=== PATIENT | female | born 1940 | race Caucasian/White ===

== ENCOUNTER → 2019-11-21 09:47 | Outpatient (CLI) | payer MEDICARE, OTHER, SELFPAY ==
[2019-11-22 03:00] LABS: COVID19 Sendout Not Detected (Not Detect)
== END ==
PROVIDERS: Visit Provider Registered Nurse
DX: Z01.818 Encounter for other preprocedural examination (principal)
CPT/HCPCS: 87635

== ENCOUNTER 2024-03-30 21:40 | Inpatient (IN) | payer MEDICARE, OTHER, SELFPAY ==
[2024-03-30] VITALS (15 sets, daily range): BP systolic 72–190; BP diastolic 42–123; PULSE 87–129; RESP 17–26; TEMP 36.3–36.5; O2SAT 95–99; BMI 25.9
--- NOTE | 2024-03-30 22:02 | PC.NURSE ---
pt states she has been passing bright red blood, enough to make the water turn red, appears to increasing over the last couple of hours pt states she does not feel like this is hemorrhoids
[2024-03-30 22:11] LABS: INR 1.1 (0.9-1.3); Prothrombin Time 12.2 SECONDS (9.4-12.5)
[2024-03-30 22:13] LABS: Add Manual Diff / Slide Review NO; Basophils Absolute Auto 100 /uL (0-100); Basophils Percent Auto 0.5 % (0-2); Eosinophils Absolute Auto 300 /uL (0-450); Eosinophils Percent Auto 1.6 % (2-4); Hematocrit 39.1 % (36-46); Hemoglobin 12.1 g/dL (12.0-16.0); Lymphocytes Absolute Auto 4100 /uL (1100-4500); Lymphocytes Percent Auto 24.8 % (25-40); Mean Corpuscular Hemoglobin 28.5 PG (26-34); Mean Corpuscular Volume 92.2 fL (80-100); Monocytes Absolute Auto 500 /uL (0-900); Monocytes Percent Auto 2.9 % (3-14); Neutrophils Absolute Auto 11700 /uL (1500-7000); Neutrophils Percent Auto 70.2 % (50-75); Platelet Count 625 X10^3/uL (150-400); Red Blood Cell Count 4.24 X10^6/uL (4.0-5.2); White Blood Cell Count 16.6 X10^3/uL (4.5-11.0)
[2024-03-30 22:14] LABS: PTT Partial Thromboplastin Tim 38 SECONDS (25.1-36.5)
[2024-03-30 22:15] LABS: Alanine Aminotransferase 20 IU/L (<35); Albumin 4.1 g/dL (3.5-5.0); Albumin Globulin Ratio 1.3 (1.0-2.8); Alkaline Phosphatase 108 U/L (38-126); Aspartate Aminotransferase 31 IU/L (14-36); BUN Creatinine Ratio 37.2 (6-22); Bilirubin Total 0.6 mg/dL (0.2-1.3); Blood Urea Nitrogen 32 mg/dL (7-17); Carbon Dioxide 25 mmol/L (22-32); Chloride 105 mmol/L (98-107); Estimated Glomerular Filt Rate > 60 mL/min (>60); Globulin 3.1 g/dL (1.7-4.1); Glucose 131 mg/dL (80-110); HEMOLYSIS < 15 (0-50); Lipase 135 U/L (23-300); Potassium 4.2 mmol/L (3.4-5.1); Sodium 136 mmol/L (137-145); Total Protein 7.2 g/dL (6.3-8.2)
--- NOTE | 2024-03-30 22:20 | PC.NURSE ---
pt up to bathroom, pass about 500ml of blood with stool passed
--- NOTE | 2024-03-30 22:34 | ED.GIBLEED ---
HPI - GI Bleed General Chief complaint: GI Bleed Stated complaint: Rectal Bleeding Time Seen by Provider: 03/30/24 21:59 Source: patient Mode of arrival: Ambulatory Limitations: no limitations History of Present Illness HPI Narrative: Patient is an 84-year-old female. History of polycythemia vera. Not on blood thinners who is here for evaluation of approximately 6 episodes of bright red blood per rectum. Symptoms started earlier this evening. No pain with going to the bathroom. No abdominal pain. No nausea. No vomiting. No chest pain. No shortness of breath. No lightheadedness. No recent travel. No recent antibiotics. She was never had a GI bleed in the past. Her last colonoscopy was greater than 10 years ago. He was told that she no longer needed colonoscopies because of her age. She had no abnormalities on prior colonoscopies. Related Data Home Medications Medication Instructions Recorded Confirmed [CRANBERRY] 1 cap PO QDAY ##0 01/27/17 hydrochlorothiazide 25 mg tablet 25 mg PO QDAY ##0 01/27/17 hydroxyurea 500 mg capsule 500 mg ##0 01/27/17 metoprolol succinate 50 mg 50 mg PO QDAY ##0 01/27/17 tablet,extended release 24 hr (Toprol XL) ranitidine HCl 150 mg tablet 150 mg PO BID ##0 01/27/17 (Zantac) Previous Rx's Medication Instructions Recorded cefdinir 300 mg capsule 300 mg PO Q12H #14 caps 01/27/17 Allergies Allergy/AdvReac Type Severity Reaction Status Date / Time oxycodone [OXYCODONE] Allergy Unknown Unverified 10/23/17 12:12 Review of Systems Review of Systems ROS Unobtainable: All systems reviewed & are unremarkable except as noted in HPI and below Patient History Medical History (Updated 03/31/24 @ 00:54 by Mikel Paz MD) HTN (hypertension) GERD (gastroesophageal reflux disease) Acquired polycythemia vera Social History Smoking Status: Never smoker Smoking Status: Never smoker Substance Use Type: does not use Exam Initial Vital Signs Initial Vital Signs: Vital Signs Pulse Rate 128 H 03/30/24 21:44 Pulse Oximetry 98 03/30/24 21:44 Const General: cooperative, comfortable and No ill appearing [facility] Head: normal to inspection Resp Effort & Inspection: normal respiratory effort Auscultation: clear to auscultation bilaterally Cardio Rate: tachycardic Rhythm: regular rhythm GI Inspection: normal to inspection and non-distended Palpation: soft Neuro General: patient alert, patient awake and moves all extremities Extrem General: capillary refill normal Course Orders Ordered: ED Orders 03/30/24 21:50 Complete Blood Count AUTO DIFF Stat Comprehensive Metabolic Panel Stat Lipase Stat PTT Partial Thromboplastin Jaron Stat Packed Cells Stat Prothrombin Time INR Stat Type and Screen Stat 03/30/24 22:15 GI Panel (Film Array) Stat 03/30/24 23:26 Consult to General Surgery Stat 03/30/24 23:30 Hemoglobin and Hematocrit Stat Acetaminophen (Acetaminophen 325 Mg Tablet) 650 mg PO Q6H PRN PRN Reason: Fever/Mild Pain (1-3) Sodium Chloride (Normal Saline 0.9%) 1,000 mls @ 125 mls/hr IV CONT CHRISTI Last Infusion: 03/30/24 23:30 Dose: 0 mls/hr Documented By: Admin: 03/30/24 23:23 Dose: 125 mls/hr Documented By: [place] Naloxone HCl (Naloxone 0.4 Mg/Ml Vial) 0.2 mg IV Q2MIN PRN PRN Reason: Opiate Reversal Pantoprazole Sodium (Pantoprazole 40 Mg Vial) 40 mg IV DAILY [facility] Vital Signs Vital signs: Vital Signs - 8 hr 03/30/24 21:44 03/30/24 21:45 03/30/24 21:45 Temperature Pulse Rate 128 H 126 H Respiratory Rate Blood Pressure 190/123 H Pulse Oximetry 98 99 Oxygen Delivery Method 03/30/24 21:51 03/30/24 22:00 03/30/24 22:22 Temperature 97.3 F L Pulse Rate 129 H 111 H 115 H Respiratory Rate 24 22 18 Blood Pressure 190/123 H Pulse Oximetry 98 98 97 Oxygen Delivery Method Room Air 03/30/24 22:22 03/30/24 22:30 03/30/24 23:10 Temperature Pulse Rate 115 H 103 H Respiratory Rate 18 20 Blood Pressure 142/64 H Pulse Oximetry 98 97 Oxygen Delivery Method 03/30/24 23:11 03/30/24 23:11 03/30/24 23:20 Temperature Pulse Rate 102 H Respiratory Rate 22 Blood Pressure 96/54 L 72/42 L Pulse Oximetry 95 Oxygen Delivery Method 03/30/24 23:20 03/30/24 23:21 03/30/24 23:21 Temperature Pulse Rate 90 87 Respiratory Rate 21 22 Blood Pressure 76/45 L Pulse Oximetry 95 95 Oxygen Delivery Method 03/30/24 23:30 03/30/24 23:34 03/30/24 23:37 Temperature 97.7 F Pulse Rate 97 H 97 H Respiratory Rate 17 18 Blood Pressure 76/45 L 116/56 L Pulse Oximetry 96 Oxygen Delivery Method 03/30/24 23:37 Temperature Pulse Rate 96 H Respiratory Rate 19 Blood Pressure Pulse Oximetry 97 Oxygen Delivery Method MDM - GI Bleed Lab Data Attestation: I reviewed the patient's lab results. 03/30/24 23:30 03/30/24 21:50 Labs: Lab Results 03/30/24 03/30/24 03/30/24 Range/Units 21:50 22:15 23:30 WBC 16.6 H (4.5-11.0) X10^3/uL RBC 4.24 (4.0-5.2) X10^6/uL Hgb 12.1 10.6 L (12.0-16.0) g/dL Hct 39.1 34.2 L (36-46) % MCV 92.2 (80-100) fL MCH 28.5 (26-34) PG MCHC 31.0 (30-36) % RDW 20.0 H (11.6-14.8) % Plt Count 625 H (150-400) X10^3/uL Neut % (Auto) 70.2 (50-75) % Lymph % (Auto) 24.8 L (25-40) % [place] % (Auto) 2.9 L (3-14) % Eos % (Auto) 1.6 L (2-4) % Baso % (Auto) 0.5 (0-2) % Neut # (Auto) 03141 H (7911-3551) /uL Lymph # (Auto) 4100 (9180-3725) /uL [place] # (Auto) 500 (0-900) /uL Eos # (Auto) 300 (0-450) /uL Baso # (Auto) 100 (0-100) /uL PT 12.2 (9.4-12.5) SECONDS INR 1.1 (0.9-1.3) APTT 38 H (25.1-36.5) SECONDS Sodium 136 L (137-145) mmol/L Potassium 4.2 (3.4-5.1) mmol/L Chloride 105 (98-107) mmol/L Carbon Dioxide 25 (22-32) mmol/L BUN 32 H (7-17) mg/dL Creatinine 0.86 (0.52-1.04) mg/dL Estimated GFR > 60 (>60) mL/min BUN/Creatinine Ratio 37.2 H (6-22) Glucose 131 H (80-110) mg/dL Calcium 10.0 (8.4-10.2) mg/dL Total Bilirubin 0.6 (0.2-1.3) mg/dL AST 31 (14-36) IU/L ALT 20 (<35) IU/L Alkaline Phosphatase 108 (38-126) U/L Total Protein 7.2 (6.3-8.2) g/dL Albumin 4.1 (3.5-5.0) g/dL Globulin 3.1 (1.7-4.1) g/dL Albumin/Globulin Ratio 1.3 (1.0-2.8) Lipase 135 (23-300) U/L Stl C. cayetanensis PCR Not detected (Not Detect) Stool Rotavirus (PCR) Not detected (Not Detect) Stool Adenovirus (PCR) Not detected (Not Detect) Stool Astrovirus (PCR) Not detected (Not Detect) Stool Cryptosporidium PCR Not detected (Not Detect) Stl E.coli Shiga Tox PCR Not detected (Not Detect) St Sh/Enteroin Ecoli PCR Not detected (Not Detect) Stl Enterotoxigenic E PCR Not detected (Not Detect) Stool EPEC (PCR) Not detected (Not Detect) Stl E. histolytica PCR Not detected (Not Detect) Stool Giardia Lamblia PCR Not detected (Not Detect) Stool Sapovirus (PCR) Not detected (Not Detect) Stl P. shigelloides PCR Not detected (Not Detect) St Y.enterocolitica PCR Not detected (Not Detect) Stool Vibrio (PCR) Not detected (Not Detect) Stl Vibrio cholerae PCR Not detected (Not Detect) Stl Enteroaggr Ecoli PCR Not detected (Not Detect) Stl Norovirus GI/GII PCR Not detected (Not Detect) Campylobacter (PCR) Not detected (Not Detect) C. difficile Tox (PCR) Not detected (Not Detect) Salmonella (PCR) Not detected (Not Detect) Blood Type O Positive Antibody Screen Negative Crossmatch See Detail MDM Narrative Medical decision making narrative: Patient does have a leukocytosis and does have thrombocytosis however has a history of polycythemia vera. Has had 2 episodes of large volume bright red blood per rectum here in the emergency department. Initial hemoglobin hematocrit was unremarkable. Was tachycardic and hypertensive upon arrival. When she went to use the restroom for the 2nd time she became lightheaded. Patient is now hypotensive with a systolic blood pressure in the 70s over 80s. Her blood pressure improved with lying down. She never had a change in mentation. Repeat H&H does show a drop in both her hemoglobin and hematocrit. GI panel was negative for infectious etiology. Discussed the need for blood transfusion with the patient. She expressed understanding and agreement. Discussed the case with Dr. Paz hospitalist on-call who will admit for further evaluation and treatment. Critical Care Time Critical Care Time Critical Care Time: Yes Total Critical Care Time: 35 Attestation: The high probability of a clinically significant, sudden or life threatening deterioration of the [cardiovascular] system(s) required my full and direct attention, intervention and personal management. The aggregate critical care time was [35] minutes. This time is in addition to time spent performing reported procedures but includes the following: [x] Data Review and interpretation [x] Patient assessment and monitoring of vital signs [x] Documentation [x] Medication orders and management Discharge Plan Departure Patient Disposition: Admitted As Inpatient Clinical Impression: GI bleed Admit Date/Time: 03/30/24 23:45 Admit Provider: Mikel Turner
--- NOTE | 2024-03-30 23:11 | PC.NURSE ---
Pt call light in restroom, Tech went to check on Pt. Pt c/o dizzyness. there was a lot of blood in the toilet post void. RN and provider aware. returned Pt back to via wheel chair
--- NOTE | 2024-03-30 23:12 | PC.NURSE ---
pt up to the bathroom became dizzy, taken back to room by wc, bp 96/[address] Weller notified will redraw h/h at 2350
[2024-03-30] MEDS: SODIUM CHLORIDE 0.9% 1,000 ML 125 ML IV (23:23)
[2024-03-30 23:40] LABS: Adenovirus F 40/41 Not Detected (Not Detect); Astrovirus Not Detected (Not Detect); Campylobacter Not Detected (Not Detect); Clostridium difficile toxin AB Not Detected (Not Detect); Cryptosporidium Not Detected (Not Detect); Cyclospora cayetanensis Not Detected (Not Detect); Entamoeba histolytica Not Detected (Not Detect); Enteroaggregative E.coli Not Detected (Not Detect); Enteropathogenic E.coli Not Detected (Not Detect); Enterotoxigenic E.coli It/st Not Detected (Not Detect); Giardia lamblia Not Detected (Not Detect); Norovirus GI/GII Not Detected (Not Detect); Plesiomonsa shigelloides Not Detected (Not Detect); Rotavirus A Not Detected (Not Detect); Salmonella Not Detected (Not Detect); Sapovirus Not Detected (Not Detect); Shiga-like toxin-prod E.coli Not Detected (Not Detect); Shigella/Enteroinvasive E.coli Not Detected (Not Detect); Vibrio Not Detected (Not Detect); Vibrio cholerae Not Detected (Not Detect); Yersinia enterocolitica Not Detected (Not Detect)
[2024-03-30 23:44] LABS: Hematocrit 34.2 % (36-46); Hemoglobin 10.6 g/dL (12.0-16.0)
[2024-03-31] VITALS (13 sets, daily range): BP systolic 113–159; BP diastolic 57–93; PULSE 87–105; RESP 16–19; TEMP 36.1–36.7; O2SAT 95–99; BMI 25.9
--- NOTE | 2024-03-31 00:47 | P.HP_ITS ---
History of Present Illness History of Present Illness Date Patient Seen: 03/31/24 Chief complaint: Rectal Bleeding Narrative: 84 y/o with PMH of polycytemia vera, HLD, UTIs and HTN, presented with daughter after she had several episodes of painless rectal bleed. In the ED she had 2 and at one point hypotensive with SBP in 70-ies. She has no history of GI bleed and did not have colonoscopy lately. She did not have associated symptoms, abdominal pain, fever, chills, changes of bowel habits, nausea, vomiting. Stool studies in the ED negative. Hb and Hct drop by 2 points in the ED, after the 1st unit of PRBC given. BP improved and over the past 1.5 hours SBP > 100. [facility] Medical History (Updated 03/31/24 @ 00:54 by Mikel Paz MD) HTN (hypertension) GERD (gastroesophageal reflux disease) Acquired polycythemia vera Social History Smoking Status: Never smoker Meds Home Medications and Allergies Home Medications Medication Instructions Recorded Confirmed Type [CRANBERRY] 1 cap PO QDAY ##0 01/27/17 03/31/24 History aspirin 81 mg tablet 81 mg PO DAILY 03/31/24 03/31/24 History hydroxyurea 500 mg capsule 1,000 mg PO DAILY 03/31/24 03/31/24 History lisinopril 20 mg tablet 20 mg PO BID hypertension 03/31/24 03/31/24 History lorazepam 0.5 mg tablet 0.25 mg PO BEDTIME 03/31/24 03/31/24 History simvastatin 20 mg tablet 20 mg PO ONCE PM 03/31/24 03/31/24 History Allergies Allergy/AdvReac Type Severity Reaction Status Date / Time oxycodone [OXYCODONE] Allergy Unknown Unverified 10/23/17 12:12 Review of Systems Constitutional Comments: 25 lbs weight loss in last 1-2 years since her passed due to loss of interest in preparing food for herself only, rather then GI symptoms Cardiovascular Comments: w/o chest pain or palpitations, w/o exertional dyspnea Respiratory Comments: w/o SOB or cough Gastrointestinal Comments: without symptoms, w/o constipation, diarrhea, nausea, vomiting, abdominal pain Genitourinary Comments: w/o voiding difficulties Hematologic/Lymphatic Comments: takes hydroxyurea long time for polycytemia vera and has periodic phlebotomies - 1 - 2 /m [facility] Exam Vital Signs (past 8 hours): - 03/30/24 21:44 03/30/24 21:45 03/30/24 21:45 Temperature Pulse Rate 128 H 126 H Respiratory Rate Blood Pressure 190/123 H Pulse Oximetry 98 99 Oxygen Delivery Method 03/30/24 21:51 03/30/24 22:00 03/30/24 22:22 Temperature 97.3 F L Pulse Rate 129 H 111 H 115 H Respiratory Rate 24 22 18 Blood Pressure 190/123 H Pulse Oximetry 98 98 97 Oxygen Delivery Method Room Air 03/30/24 22:22 03/30/24 22:30 03/30/24 23:10 Temperature Pulse Rate 115 H 103 H Respiratory Rate 18 20 Blood Pressure 142/64 H Pulse Oximetry 98 97 Oxygen Delivery Method 03/30/24 23:11 03/30/24 23:11 03/30/24 23:20 Temperature Pulse Rate 102 H Respiratory Rate 22 Blood Pressure 96/54 L 72/42 L Pulse Oximetry 95 Oxygen Delivery Method 03/30/24 23:20 03/30/24 23:21 03/30/24 23:21 Temperature Pulse Rate 90 87 Respiratory Rate 21 22 Blood Pressure 76/45 L Pulse Oximetry 95 95 Oxygen Delivery Method 03/30/24 23:30 03/30/24 23:34 03/30/24 23:37 Temperature 97.7 F Pulse Rate 97 H 97 H Respiratory Rate 17 18 Blood Pressure 76/45 L 116/56 L Pulse Oximetry 96 Oxygen Delivery Method 03/30/24 23:37 03/30/24 23:50 03/30/24 23:59 Temperature 97.6 F Pulse Rate 96 H 93 H Respiratory Rate 19 18 Blood Pressure 117/58 L 136/62 Pulse Oximetry 97 Oxygen Delivery Method 03/30/24 23:59 03/31/24 00:00 03/31/24 00:00 Temperature Pulse Rate 94 H 93 H Respiratory Rate 26 H 18 Blood Pressure 117/58 L 117/58 L Pulse Oximetry 96 97 Oxygen Delivery Method 03/31/24 00:30 03/31/24 00:31 03/31/24 00:31 Temperature Pulse Rate 100 H 97 H Respiratory Rate 18 18 Blood Pressure 147/64 H Pulse Oximetry 98 98 Oxygen Delivery Method Oxygen Delivery Method Room Air Const Other: appears comfortable, in no distress HENMT Other: normocephalic Resp Other: normal respiratory effort Cardio Other: RRR GI Other: abdomen not distended or tender Skin Other: w/o rashes Neuro Other: w/o deficits Extrem Other: w/o swelling Psych Other: appropriate mood, lucid Objective Labs 03/30/24 23:30 03/30/24 21:50 Labs: Laboratory Results - last 24 hr 03/30/24 03/30/24 03/30/24 21:50 22:15 23:30 WBC 16.6 H RBC 4.24 Hgb 12.1 10.6 L Hct 39.1 34.2 L MCV 92.2 MCH 28.5 MCHC 31.0 RDW 20.0 H Plt Count 625 H Neut % (Auto) 70.2 Lymph % (Auto) 24.8 L [place] % (Auto) 2.9 L Eos % (Auto) 1.6 L Baso % (Auto) 0.5 Neut # (Auto) 32777 H Lymph # (Auto) 4100 [place] # (Auto) 500 Eos # (Auto) 300 Baso # (Auto) 100 PT 12.2 INR 1.1 APTT 38 H Sodium 136 L Potassium 4.2 Chloride 105 Carbon Dioxide 25 BUN 32 H Creatinine 0.86 Estimated GFR > 60 BUN/Creatinine Ratio 37.2 H Glucose 131 H Calcium 10.0 Total Bilirubin 0.6 AST 31 ALT 20 Alkaline Phosphatase 108 Total Protein 7.2 Albumin 4.1 Globulin 3.1 Albumin/Globulin Ratio 1.3 Lipase 135 Stl C. cayetanensis PCR Not detected Stool Rotavirus (PCR) Not detected Stool Adenovirus (PCR) Not detected Stool Astrovirus (PCR) Not detected Stool Cryptosporidium PCR Not detected Stl E.coli Shiga Tox PCR Not detected St Sh/Enteroin Ecoli PCR Not detected Stl Enterotoxigenic E PCR Not detected Stool EPEC (PCR) Not detected Stl E. histolytica PCR Not detected Stool Giardia Lamblia PCR Not detected Stool Sapovirus (PCR) Not detected Stl P. shigelloides PCR Not detected St Y.enterocolitica PCR Not detected Stool Vibrio (PCR) Not detected Stl Vibrio cholerae PCR Not detected Stl Enteroaggr Ecoli PCR Not detected Stl Norovirus GI/GII PCR Not detected Campylobacter (PCR) Not detected C. difficile Tox (PCR) Not detected Salmonella (PCR) Not detected Blood Type O Positive Antibody Screen Negative Crossmatch See Detail Assessment & Plan Assessment and plan (1) Acute lower GI bleeding: Status: Acute (2) Acute posthemorrhagic anemia: Status: Acute (3) Acquired polycythemia vera: Status: Acute (4) GERD (gastroesophageal reflux disease): Status: Acute (5) HTN (hypertension): Status: Acute Assessment & Plan narrative: GI Bleed / ABLA - serial HH, PRBC - clear liquid diet - painless, DD AVMs / diverticular / ischemic / mass - surgery consulted from the ED for possible endoscopy Polycytemia Vera - Hydroxyurea 1 g daily - ASA 81 mg daily held - 1-2 phlebotomies / month HTN - held home Lisinopril 20 mg daily Recurrent UTI / Hx of ureteral stone - Cranberry cap Anxiety / Insomnia -lorazepam hs HLD - Zocor Time-Based Coding :: [TOTAL MINUTES] spent with patient and on the chart (including review of chart, obtaining history, exam, reviewing outside data, placing orders, documenting exam and treatment plan, and counseling patient) on [DATE].
[2024-03-31 04:05] LABS: Appearance Urine UA CLEAR; Bilirubin Urine UA NEGATIVE (NEGATIVE); Color Urine UA YELLOW; Glucose Urine UA NEGATIVE (Negative); Ketones Urine UA NEGATIVE (NEGATIVE); Leukocyte Esterase Urine UA NEGATIVE (NEGATIVE); Nitrite Urine UA NEGATIVE (Negative); Occult Blood Urine UA 1+ (Negative); Protein Urine UA NEGATIVE (Negative); Specific Gravity Urine UA 1.015 (1.000-1.035); Urobilinogen Urine UA 0.2 E.U./dL (0.2)
[2024-03-31 04:06] LABS: pH Urine UA 6.5 (4.5-8.0)
[2024-03-31 04:06] LABS: Add Manual Diff / Slide Review NO; Basophils Absolute Auto 0 /uL (0-100); Basophils Percent Auto 0.1 % (0-2); Eosinophils Absolute Auto 100 /uL (0-450); Eosinophils Percent Auto 0.9 % (2-4); Hematocrit 36.3 % (36-46); Hemoglobin 11.5 g/dL (12.0-16.0); Lymphocytes Absolute Auto 1600 /uL (1100-4500); Mean Corpuscular HGB Conc 31.8 % (30-36); Mean Corpuscular Hemoglobin 28.8 PG (26-34); Mean Corpuscular Volume 90.6 fL (80-100); Monocytes Absolute Auto 300 /uL (0-900); Monocytes Percent Auto 2.2 % (3-14); Neutrophils Absolute Auto 12300 /uL (1500-7000); Neutrophils Percent Auto 85.8 % (50-75); Platelet Count 449 X10^3/uL (150-400); Red Cell Distribution Width 19.2 % (11.6-14.8); White Blood Cell Count 14.4 X10^3/uL (4.5-11.0)
[2024-03-31 04:21] LABS: Bacteria Urine None Seen; Culture Indicated Urine Cult Not Indicated; RBC Urine 1-5/HPF (0-5/HPF); Squamous Epithelial Cell Urine 1-5 /HPF (0-5/HPF); Urine Volume 10mL (spun); WBC Urine 1-5/HPF (0-5/HPF)
[2024-03-31 04:31] LABS: Lactate (Lactic Acid) 1.2 mmol/L (0.7-2.1)
[2024-03-31 04:33] LABS: BUN Creatinine Ratio 47.7 (6-22); Blood Urea Nitrogen 31 mg/dL (7-17); Calcium 9.6 mg/dL (8.4-10.2); Carbon Dioxide 21 mmol/L (22-32); Chloride 106 mmol/L (98-107); Estimated Glomerular Filt Rate > 60 mL/min (>60); Glucose 120 mg/dL (80-110); HEMOLYSIS < 15 (0-50); Potassium 4.6 mmol/L (3.4-5.1); Sodium 132 mmol/L (137-145)
--- NOTE | 2024-03-31 09:31 | DI.CT.S_ITS ---
PROCEDURE: CT ANGIO ABD/PEL GI BLEED INDICATIONS: GI bleed TECHNIQUE: After the administration of intravenous contrast, 2.5 mm thick sections acquired from the diaphragm to the symphysis. 10 mm maximum-intensity projection (MIP) reformats were then acquired. For radiation dose reduction, the following was used: automated exposure control. COMPARISON: None. FINDINGS: Image Quality: Diagnostic. Abdominal aorta: No aortic aneurysm or evidence of acute aortic syndrome. Mesenteric arteries: Patent without hemodynamically significant stenosis. Renal arteries: Patent without hemodynamically significant stenosis. OTHER: Lower Chest: Small hiatal hernia. Liver: No solid mass. Gallbladder: No radiopaque gallstones or wall thickening. Biliary ducts: No biliary dilation. Pancreas: No ductal dilation. Spleen: Size is within normal limits. Adrenal Glands: Benign 1.4 cm right adrenal nodule based on Hounsfield units criteria (7 Hounsfield unit). Kidneys and Ureters: No hydronephrosis. No solid mass. No complex renal cystic lesion which requires follow up. Stomach and Bowel: Normal colonic caliber. There is an inflamed diverticulum of the mid descending colon (series 5, image 98), with mild associated wall thickening and pericolonic fat stranding. No evidence of active GI hemorrhage. Peritoneum: No abnormal intraperitoneal fluid. No free air. Ventral Wall: No hernia. Abdominal Nodes: No retroperitoneal or mesenteric adenopathy by size criteria. Vessels: Aorta and inferior vena cava are normal in size. PELVIS: Pelvic Organs: Unremarkable. Bladder: Unremarkable. Pelvic Nodes: No enlarged lymph nodes. Miscellaneous: No inguinal hernias are seen. Bones: No aggressive osseous abnormality. IMPRESSION: Mild diverticulitis of the descending colon. No evidence of perforation or abscess. No evidence of active GI hemorrhage. Benign right adrenal adenoma based on Hounsfield units criteria. [place] [employer] recommend routine biochemical screening to exclude a functional adenoma. Dictated by: Etienne Benito M.D. on 03/31/2024 at 12:08 Approved by: Etienne Benito M.D. on 03/31/2024 at 12:13
--- NOTE | 2024-03-31 09:33 | PM.CN ---
History of Present Illness Consult details Date Patient Seen: 03/31/24 Time Patient Seen: 09:33 Chief complaint: Rectal Bleeding Reason for consult: GI bleeding Requesting provider: Ken Weller Narrative: Patient had acute BRBPR last evening which consisted of 7 bms total. Drove herself to ED and was at one point hypotensive, initial labs where hemoconcentrated with mild anemia. She received one unit of PRBC. Never had pain. Does have a recent 20lb weight loss that is unexpected. Contributes it to possible grief ( 3 yrs) and the loss of taste due to Covid. 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 Has pacemaker and is with the [employer] as a patient. Meds Home Medications and Allergies Home Medications Medication Instructions Recorded Confirmed Type [CRANBERRY] 1 cap PO QDAY ##0 01/27/17 03/31/24 History aspirin 81 mg tablet 81 mg PO DAILY 03/31/24 03/31/24 History hydroxyurea 500 mg capsule 1,000 mg PO DAILY 03/31/24 03/31/24 History lisinopril 20 mg tablet 20 mg PO BID hypertension 03/31/24 03/31/24 History lorazepam 0.5 mg tablet 0.25 mg PO BEDTIME 03/31/24 03/31/24 History simvastatin 20 mg tablet 20 mg PO ONCE PM 03/31/24 03/31/24 History Allergies Allergy/AdvReac Type Severity Reaction Status Date / Time oxycodone [OXYCODONE] Allergy Unknown Unverified 10/23/17 12:12 Review of Systems Review of Systems ROS: Yes All systems reviewed with the patient and are negative except as otherwise documented Exam Vital Signs (past 8 hours): - 03/31/24 01:46 03/31/24 07:10 03/31/24 08:00 Temperature 97.8 F 97.0 F L Pulse Rate 98 H 87 105 H Respiratory Rate 18 18 16 Blood Pressure 159/93 H 119/68 125/70 Pulse Oximetry 98 96 99 Oxygen Flow Rate 0 0 Oxygen Delivery Method Room Air Oxygen Flow Rate 0 Const General: cooperative, comfortable and No acute distress Nutritional Appearance: average body habitus Orientation: alert, awake and oriented x3 HENMT Head: normal to inspection, normocephalic and atraumatic Ears: hearing grossly normal bilaterally Eyes Sclera: sclerae normal Neck Neck: trachea midline Chest Other: +Pacemaker Resp Effort & Inspection: normal respiratory effort and able to speak in complete sentences Cardio Rate: tachycardic Rhythm: regular rhythm GI Inspection: non-distended Palpation: soft and No tender Other: No further bloody BMs since admission Skin General: atrophy and dry skin Neuro General: patient alert, patient awake and patient oriented x3 Cognition: normal cognition Psych Mental Status: mental status grossly normal Judgment: judgment good Objective Labs 03/31/24 03:25 03/31/24 03:25 Labs: Laboratory Results - last 24 hr 03/30/24 03/30/24 03/30/24 21:50 22:15 23:30 WBC 16.6 H RBC 4.24 Hgb 12.1 10.6 L Hct 39.1 34.2 L MCV 92.2 MCH 28.5 MCHC 31.0 RDW 20.0 H Plt Count 625 H Neut % (Auto) 70.2 Lymph % (Auto) 24.8 L [place] % (Auto) 2.9 L Eos % (Auto) 1.6 L Baso % (Auto) 0.5 Neut # (Auto) 97576 H Lymph # (Auto) 4100 [place] # (Auto) 500 Eos # (Auto) 300 Baso # (Auto) 100 PT 12.2 INR 1.1 APTT 38 H Sodium 136 L Potassium 4.2 Chloride 105 Carbon Dioxide 25 BUN 32 H Creatinine 0.86 Estimated GFR > 60 BUN/Creatinine Ratio 37.2 H Glucose 131 H Lactate Calcium 10.0 Total Bilirubin 0.6 AST 31 ALT 20 Alkaline Phosphatase 108 Total Protein 7.2 Albumin 4.1 Globulin 3.1 Albumin/Globulin Ratio 1.3 Lipase 135 Urine Color Urine Appearance Urine pH Ur Specific [place] Urine Protein Urine Glucose (UA) Urine Ketones Urine Occult Blood Urine Nitrate Urine Bilirubin Urine Urobilinogen Ur Leukocyte Esterase Urine RBC Urine WBC Ur Squamous Epith Cells Urine Bacteria Ur Culture Indicated? Vol Urine Centrifuged Stl C. cayetanensis PCR Not detected Stool Rotavirus (PCR) Not detected Stool Adenovirus (PCR) Not detected Stool Astrovirus (PCR) Not detected Stool Cryptosporidium PCR Not detected Stl E.coli Shiga Tox PCR Not detected St Sh/Enteroin Ecoli PCR Not detected Stl Enterotoxigenic E PCR Not detected Stool EPEC (PCR) Not detected Stl E. histolytica PCR Not detected Stool Giardia Lamblia PCR Not detected Stool Sapovirus (PCR) Not detected Stl P. shigelloides PCR Not detected St Y.enterocolitica PCR Not detected Stool Vibrio (PCR) Not detected Stl Vibrio cholerae PCR Not detected Stl Enteroaggr Ecoli PCR Not detected Stl Norovirus GI/GII PCR Not detected Campylobacter (PCR) Not detected C. difficile Tox (PCR) Not detected Salmonella (PCR) Not detected Blood Type O Positive Antibody Screen Negative Crossmatch See Detail 03/31/24 03/31/24 02:05 03:25 WBC 14.4 H RBC 4.00 Hgb 11.5 L Hct 36.3 MCV 90.6 MCH 28.8 MCHC 31.8 RDW 19.2 H Plt Count 449 H Neut % (Auto) 85.8 H Lymph % (Auto) 11.0 L [place] % (Auto) 2.2 L Eos % (Auto) 0.9 L Baso % (Auto) 0.1 Neut # (Auto) 05038 H Lymph # (Auto) 1600 [place] # (Auto) 300 Eos # (Auto) 100 Baso # (Auto) 0 PT INR APTT Sodium 132 L Potassium 4.6 Chloride 106 Carbon Dioxide 21 L BUN 31 H Creatinine 0.65 Estimated GFR > 60 BUN/Creatinine Ratio 47.7 H Glucose 120 H Lactate 1.2 Calcium 9.6 Total Bilirubin AST ALT Alkaline Phosphatase Total Protein Albumin Globulin Albumin/Globulin Ratio Lipase Urine Color Yellow Urine Appearance Clear Urine pH 6.5 Ur Specific [place] 1.015 Urine Protein Negative Urine Glucose (UA) Negative Urine Ketones Negative Urine Occult Blood 1+ H Urine Nitrate Negative Urine Bilirubin Negative Urine Urobilinogen 0.2 Ur Leukocyte Esterase Negative Urine RBC 1-5/hpf Urine WBC 1-5/hpf Ur Squamous Epith Cells 1-5 /hpf Urine Bacteria None seen Ur Culture Indicated? Cult not indicated Vol Urine Centrifuged 10ml (spun) Stl C. cayetanensis PCR Stool Rotavirus (PCR) Stool Adenovirus (PCR) Stool Astrovirus (PCR) Stool Cryptosporidium PCR Stl E.coli Shiga Tox PCR St Sh/Enteroin Ecoli PCR Stl Enterotoxigenic E PCR Stool EPEC (PCR) Stl E. histolytica PCR Stool Giardia Lamblia PCR Stool Sapovirus (PCR) Stl P. shigelloides PCR St Y.enterocolitica PCR Stool Vibrio (PCR) Stl Vibrio cholerae PCR Stl Enteroaggr Ecoli PCR Stl Norovirus GI/GII PCR Campylobacter (PCR) C. difficile Tox (PCR) Salmonella (PCR) Blood Type Antibody Screen Crossmatch [facility] Medical History HTN (hypertension) GERD (gastroesophageal reflux disease) Acquired polycythemia vera Tobacco & Substance Use Smoking Status: Never smoker Assessment & Plan Assessment & Plan narrative: Presented with GI bleed that could be diverticular given lack of syptoms, recent unexpected weight loss. Plan: Continue clear liquid diet, CT scan abdomen and pelvis. Possible bowel prep later today with colonoscopy tomorrow depending on CT findings. Time-Based Coding :: 55 minutes total spent with patient and on the chart (including review of chart, obtaining history, exam, reviewing outside data, placing orders, documenting exam and treatment plan, and counseling patient) on 03/31/24.
[2024-03-31] MEDS: PANTOPRAZOLE 40 MG VIAL IV (09:46)
[2024-03-31] MEDS: HYDROXYUREA 500 MG CAPSULE 1000 MG PO (10:36)
[2024-03-31 11:15] LABS: Hematocrit 36.5 % (36-46); Hemoglobin 11.4 g/dL (12.0-16.0)
--- NOTE | 2024-03-31 12:37 | PM.CALLCOV.1 ---
Call Coverage Note Note Date of Patient Contact: 03/31/24 Narrative of Care Provided: Due to CT findings, I recommend colonoscopy to confirm the area in the colon is inflammation and not a mass.
--- NOTE | 2024-03-31 16:30 | PC.NURSE ---
per Dr. Giles start colonoscopy prep at 1700 today.
--- NOTE | 2024-03-31 16:36 | CM.DPNOTE ---
DCP Note PSYCHOLOGY ASSISTANT reviewed EMR. Per chart, pt here following suspected GI bleed. Per chart, Dr. Giles suggests colonoscopy tomorrow to rule out mass in colon. Starting colonoscopy prep today. Per chart, PSYCHOLOGY ASSISTANT lives with spouse in [place]. PSYCHOLOGY ASSISTANT unable to complete DCP Assessment due to triaging needs. CM team to follow closely for DCP needs that arise. LIZZY Garcia
--- NOTE | 2024-03-31 16:50 | PM.HP.1 ---
History of Present Illness History of Present Illness Date Patient Seen: 03/31/24 Time Patient Seen: 12:00 Chief complaint: Rectal Bleeding Narrative: Per overnight provider, 84 y/o with PMH of polycytemia vera, HLD, UTIs and HTN, presented with daughter after she had several episodes of painless rectal bleed. In the ED she had 2 and at one point hypotensive with SBP in 70-ies. She has no history of GI bleed and did not have colonoscopy lately. She did not have associated symptoms, abdominal pain, fever, chills, changes of bowel habits, nausea, vomiting. Stool studies in the ED negative. Hb and Hct drop by 2 points in the ED, after the 1st unit of PRBC given. BP improved and over the past 1.5 hours SBP > 100. Interval history: Patient with no ongoing bleeding today. She is tolerating clears. CT Angio today without active bleeding, showed descending colon possible diverticulitis. Discussed with surgeon whom will perform C-scope tomorrow to rule out malignancy. Hg stable at 11.4. [facility] Medical History HTN (hypertension) GERD (gastroesophageal reflux disease) Acquired polycythemia vera Social History Smoking Status: Never smoker Meds Home Medications and Allergies Home Medications Medication Instructions Recorded Confirmed Type [CRANBERRY] 1 cap PO QDAY ##0 01/27/17 03/31/24 History aspirin 81 mg tablet 81 mg PO DAILY 03/31/24 03/31/24 History hydroxyurea 500 mg capsule 1,000 mg PO DAILY 03/31/24 03/31/24 History lisinopril 20 mg tablet 20 mg PO BID hypertension 03/31/24 03/31/24 History lorazepam 0.5 mg tablet 0.25 mg PO BEDTIME 03/31/24 03/31/24 History simvastatin 20 mg tablet 20 mg PO ONCE PM 03/31/24 03/31/24 History Allergies Allergy/AdvReac Type Severity Reaction Status Date / Time oxycodone [OXYCODONE] Allergy Unknown Unverified 10/23/17 12:12 Review of Systems Review of Systems Narrative: All other systems reviewed with the patient and are negative unless otherwise stated. Exam Vital Signs (past 8 hours): - 03/31/24 12:00 Temperature 97.1 F L Pulse Rate 94 H Blood Pressure 113/67 Pulse Oximetry 97 Oxygen Flow Rate 0 Oxygen Delivery Method Room Air Oxygen Flow Rate 0 Narrative Exam Narrative: Gen: No acute distress CV RRR Pulm: No respiratory distress Abd: S NT ND Ext: no edema Objective Labs 03/31/24 11:07 03/31/24 03:25 Labs: Laboratory Results - last 24 hr 03/30/24 03/30/24 03/30/24 21:50 22:15 23:30 WBC 16.6 H RBC 4.24 Hgb 12.1 10.6 L Hct 39.1 34.2 L MCV 92.2 MCH 28.5 MCHC 31.0 RDW 20.0 H Plt Count 625 H Neut % (Auto) 70.2 Lymph % (Auto) 24.8 L [place] % (Auto) 2.9 L Eos % (Auto) 1.6 L Baso % (Auto) 0.5 Neut # (Auto) 24921 H Lymph # (Auto) 4100 [place] # (Auto) 500 Eos # (Auto) 300 Baso # (Auto) 100 PT 12.2 INR 1.1 APTT 38 H Sodium 136 L Potassium 4.2 Chloride 105 Carbon Dioxide 25 BUN 32 H Creatinine 0.86 Estimated GFR > 60 BUN/Creatinine Ratio 37.2 H Glucose 131 H Lactate Calcium 10.0 Total Bilirubin 0.6 AST 31 ALT 20 Alkaline Phosphatase 108 Total Protein 7.2 Albumin 4.1 Globulin 3.1 Albumin/Globulin Ratio 1.3 Lipase 135 Urine Color Urine Appearance Urine pH Ur Specific [place] Urine Protein Urine Glucose (UA) Urine Ketones Urine Occult Blood Urine Nitrate Urine Bilirubin Urine Urobilinogen Ur Leukocyte Esterase Urine RBC Urine WBC Ur Squamous Epith Cells Urine Bacteria Ur Culture Indicated? Vol Urine Centrifuged Stl C. cayetanensis PCR Not detected Stool Rotavirus (PCR) Not detected Stool Adenovirus (PCR) Not detected Stool Astrovirus (PCR) Not detected Stool Cryptosporidium PCR Not detected Stl E.coli Shiga Tox PCR Not detected St Sh/Enteroin Ecoli PCR Not detected Stl Enterotoxigenic E PCR Not detected Stool EPEC (PCR) Not detected Stl E. histolytica PCR Not detected Stool Giardia Lamblia PCR Not detected Stool Sapovirus (PCR) Not detected Stl P. shigelloides PCR Not detected St Y.enterocolitica PCR Not detected Stool Vibrio (PCR) Not detected Stl Vibrio cholerae PCR Not detected Stl Enteroaggr Ecoli PCR Not detected Stl Norovirus GI/GII PCR Not detected Campylobacter (PCR) Not detected C. difficile Tox (PCR) Not detected Salmonella (PCR) Not detected Blood Type O Positive Antibody Screen Negative Crossmatch See Detail 03/31/24 03/31/24 03/31/24 02:05 03:25 11:07 WBC 14.4 H RBC 4.00 Hgb 11.5 L 11.4 L Hct 36.3 36.5 MCV 90.6 MCH 28.8 MCHC 31.8 RDW 19.2 H Plt Count 449 H Neut % (Auto) 85.8 H Lymph % (Auto) 11.0 L [place] % (Auto) 2.2 L Eos % (Auto) 0.9 L Baso % (Auto) 0.1 Neut # (Auto) 17521 H Lymph # (Auto) 1600 [place] # (Auto) 300 Eos # (Auto) 100 Baso # (Auto) 0 PT INR APTT Sodium 132 L Potassium 4.6 Chloride 106 Carbon Dioxide 21 L BUN 31 H Creatinine 0.65 Estimated GFR > 60 BUN/Creatinine Ratio 47.7 H Glucose 120 H Lactate 1.2 Calcium 9.6 Total Bilirubin AST ALT Alkaline Phosphatase Total Protein Albumin Globulin Albumin/Globulin Ratio Lipase Urine Color Yellow Urine Appearance Clear Urine pH 6.5 Ur Specific [place] 1.015 Urine Protein Negative Urine Glucose (UA) Negative Urine Ketones Negative Urine Occult Blood 1+ H Urine Nitrate Negative Urine Bilirubin Negative Urine Urobilinogen 0.2 Ur Leukocyte Esterase Negative Urine RBC 1-5/hpf Urine WBC 1-5/hpf Ur Squamous Epith Cells 1-5 /hpf Urine Bacteria None seen Ur Culture Indicated? Cult not indicated Vol Urine Centrifuged 10ml (spun) Stl C. cayetanensis PCR Stool Rotavirus (PCR) Stool Adenovirus (PCR) Stool Astrovirus (PCR) Stool Cryptosporidium PCR Stl E.coli Shiga Tox PCR St Sh/Enteroin Ecoli PCR Stl Enterotoxigenic E PCR Stool EPEC (PCR) Stl E. histolytica PCR Stool Giardia Lamblia PCR Stool Sapovirus (PCR) Stl P. shigelloides PCR St Y.enterocolitica PCR Stool Vibrio (PCR) Stl Vibrio cholerae PCR Stl Enteroaggr Ecoli PCR Stl Norovirus GI/GII PCR Campylobacter (PCR) C. difficile Tox (PCR) Salmonella (PCR) Blood Type Antibody Screen Crossmatch Assessment & Plan Assessment & Plan narrative: 1. Acute blood loss anemia secondary to lower GI bleeding. - discussed with surgeon today. Plan is for C-scope tomorrow. CT angio today without active source, shows possible diverticulitis but patient is without any abdominal pain. - bowel prep tonight, NPO for c-scope tomorrow per surgeon - patient presented hypotensive, improved with 1U PRBC transfusion, h/h responded appropriately. Hg stable at 11.4 on repeat. continue to follow h/h, will repeat now in the AM unless there are any hemodynamic changes or if there are any large bloody bowel movements again. - UA negative for infection. Stool PCR negative for infectious etiologies as well. 2. Polycytemia Vera - Hydroxyurea 1 g daily - ASA 81 mg daily held - 1-2 phlebotomies / month 3. HTN - held home Lisinopril 20 mg daily 4. Recurrent UTI / Hx of ureteral stone - Cranberry cap 5. Anxiety / Insomnia -lorazepam hs 6. HLD - Zocor Code: Full, surrogate is patient's spouse DVT: Lovenox daily I have utilized all available immediate resources to obtain, update, or review the patient's current medications. Dispo: patient admitted under inpatient status. Likely discharge home in a couple of days. Additional history obtained via discussions with the overnight telehospitalist, and the surgeon noted above. These discussions contributed to the creation of the above assessment and plan. I have reviewed patient's presenting documentation, labs, and imaging personally. Time-Based Coding :: [TOTAL MINUTES] spent with patient and on the chart (including review of chart, obtaining history, exam, reviewing outside data, placing orders, documenting exam and treatment plan, and counseling patient) on [DATE].
[2024-03-31] MEDS: PEG3350/SOD SULF,BICARB,CL/KCL 4,000 ML SOLUTION 2000 ML PO (17:08)
[2024-03-31] MEDS: SODIUM CHLORIDE 0.9% FLUSH 10 ML IV (20:11)
[2024-03-31] MEDS: ATORVASTATIN 20 MG TABLET 10 MG PO (20:11)
[2024-03-31] MEDS: LORazepam 0.5 MG TABLET 0.25 MG PO (20:12)
[2024-04-01] VITALS (8 sets, daily range): BP systolic 117–162; BP diastolic 52–89; PULSE 75–96; RESP 14–19; TEMP 36.1–36.9; O2SAT 97–100
[2024-04-01 05:43] LABS: Add Manual Diff / Slide Review NO; Basophils Absolute Auto 0 /uL (0-100); Basophils Percent Auto 0.3 % (0-2); Eosinophils Absolute Auto 200 /uL (0-450); Eosinophils Percent Auto 2.2 % (2-4); Hematocrit 35.8 % (36-46); Hemoglobin 11.4 g/dL (12.0-16.0); Lymphocytes Absolute Auto 2300 /uL (1100-4500); Lymphocytes Percent Auto 25.9 % (25-40); Mean Corpuscular HGB Conc 31.9 % (30-36); Mean Corpuscular Volume 90.9 fL (80-100); Monocytes Absolute Auto 300 /uL (0-900); Monocytes Percent Auto 2.9 % (3-14); Neutrophils Absolute Auto 6100 /uL (1500-7000); Neutrophils Percent Auto 68.7 % (50-75); Platelet Count 430 X10^3/uL (150-400); Red Blood Cell Count 3.94 X10^6/uL (4.0-5.2); Red Cell Distribution Width 19.2 % (11.6-14.8); White Blood Cell Count 8.9 X10^3/uL (4.5-11.0)
[2024-04-01 06:05] LABS: Blood Urea Nitrogen 15 mg/dL (7-17); Calcium 9.8 mg/dL (8.4-10.2); Carbon Dioxide 22 mmol/L (22-32); Chloride 108 mmol/L (98-107); Estimated Glomerular Filt Rate > 60 mL/min (>60); Glucose 99 mg/dL (80-110); HEMOLYSIS < 15 (0-50); Magnesium 2.1 mg/dL (1.6-2.3); Potassium 4.4 mmol/L (3.4-5.1); Sodium 136 mmol/L (137-145)
--- NOTE | 2024-04-01 07:35 | PC.NURSE ---
Patient is A & O x 4, had a period of confusion at 0010 when awoken for VS. Patient denies any pain or nause. Patient took Golytely prep 2L as ordered last evening. This am BM was yellowish salazar with small flecks of stool, no visible blood. Patient has been NPO since midnight.
[2024-04-01] MEDS: LACTATED RINGERS 1,000 ML 42 ML IV (08:27)
--- NOTE | 2024-04-01 08:33 | PM.PN.1 ---
Subjective Subjective Date Patient Seen: 04/01/24 Time Patient Seen: 08:34 Interval history: She completed the prep last night. Exam Vital Signs (past 8 hours): - 04/01/24 04:00 04/01/24 07:57 04/01/24 08:28 Temperature 97.5 F L 97.5 F L Pulse Rate 87 96 H 96 H Respiratory Rate 19 16 16 Blood Pressure 160/89 H 149/85 H 149/85 H Pulse Oximetry 98 100 99 Oxygen Delivery Method Room Air Oxygen Flow Rate 0 Oxygen Delivery Method Room Air Oxygen Flow Rate 0 Const General: No acute distress Objective Labs 04/01/24 04:55 04/01/24 04:55 Labs: Laboratory Results - last 24 hr 03/31/24 04/01/24 11:07 04:55 WBC 8.9 RBC 3.94 L Hgb 11.4 L 11.4 L Hct 36.5 35.8 L MCV 90.9 MCH 29.0 MCHC 31.9 RDW 19.2 H Plt Count 430 H Neut % (Auto) 68.7 Lymph % (Auto) 25.9 [place] % (Auto) 2.9 L Eos % (Auto) 2.2 Baso % (Auto) 0.3 Neut # (Auto) 6100 Lymph # (Auto) 2300 [place] # (Auto) 300 Eos # (Auto) 200 Baso # (Auto) 0 Sodium 136 L Potassium 4.4 Chloride 108 H Carbon Dioxide 22 BUN 15 Creatinine 0.60 Estimated GFR > 60 BUN/Creatinine Ratio 25.0 H Glucose 99 Calcium 9.8 Magnesium 2.1 PFSH Medical History HTN (hypertension) GERD (gastroesophageal reflux disease) Acquired polycythemia vera Social History Smoking Status: Never smoker alcohol intake: never Assessment & Plan Assessment and plan (1) GI bleed: Qualifiers: GI bleed type/associated pathology: unspecified gastrointestinal hemorrhage type Qualified Code(s): K92.2 - Gastrointestinal hemorrhage, unspecified Status: Acute Plan Proceed with colonoscopy Time-Based Coding :: [TOTAL MINUTES] spent with patient and on the chart (including review of chart, obtaining history, exam, reviewing outside data, placing orders, documenting exam and treatment plan, and counseling patient) on [DATE].
--- NOTE | 2024-04-01 09:08 | PM.OP.COLON ---
Operative Date/Time/Diagnoses Date of procedure: 04/01/24 Time of procedure: 09:09 Pre-op diagnosis: Rectal bleeding Post-op diagnosis: same Procedure & Clinicians Study performed: Colonoscopy Same procedure as scheduled: Yes Surgeon: Arthur Bailon Procedure Notes Procedure in detail: Surgeon: Arthur Bailon MD Anesthesia: Lyric Bean CRNA Procedure: The patient was brought to the endoscopy suite, placed in left lateral decubitus position. The patient was connected to monitoring devices. A time-out was performed. Sedation was administered. Once the patient was adequately sedated, a digital rectal exam was performed and was normal. The scope was then inserted and advanced to the cecum where the appendiceal orifice was identified and photographed. The scope was then slowly withdrawn over greater than 6 minutes. The mucosa was thoroughly inspected. There were scattered diverticula in the descending and sigmoid colon. The scope was retroflexed in the rectum. There were internal hemorrhoids. The scope was straightened and removed. The patient was awakened and brought to recovery. Scope withdrawal time: 8 minutes Sedation time: 23 minutes EBL: 0 Findings: Diverticulosis and internal hemorrhoids, no obvious source of bleeding Post-procedure Disposition: PACU
[2024-04-01] MEDS: HYDROXYUREA 500 MG CAPSULE 1000 MG PO (10:01)
[2024-04-01] MEDS: SODIUM CHLORIDE 0.9% FLUSH 10 ML IV ×2 (10:02)
[2024-04-01] MEDS: PANTOPRAZOLE 40 MG VIAL IV (10:02)
--- NOTE | 2024-04-01 10:26 | PM.DS.1 ---
History of Present Illness History of Present Illness Date Patient Seen: 04/01/24 Time Patient Seen: 10:27 Chief complaint: Rectal Bleeding Narrative: Per overnight provider, 84 y/o with PMH of polycytemia vera, HLD, UTIs and HTN, presented with daughter after she had several episodes of painless rectal bleed. In the ED she had 2 and at one point hypotensive with SBP in 70-ies. She has no history of GI bleed and did not have colonoscopy lately. She did not have associated symptoms, abdominal pain, fever, chills, changes of bowel habits, nausea, vomiting. Stool studies in the ED negative. Hb and Hct drop by 2 points in the ED, after the 1st unit of PRBC given. BP improved and over the past 1.5 hours SBP > 100. Interval history: Patient with no ongoing bleeding today. She is tolerating clears. CT Angio today without active bleeding, showed descending colon possible diverticulitis. Discussed with surgeon whom will perform C-scope tomorrow to rule out malignancy. Hg stable at 11.4. Discharge Providers Provider Date of admission: 03/30/24 23:45 Discharge Date: 04/01/24 Consults: 03/30/24 23:26 Consult to General Surgery Stat Comment: Consulting Provider: Nimco Giles Reason for consultation: GI bleed Has provider been notified: Yes Discharge provider: Rafat Asif DO Summary Hospital Course Discharge Diagnosis: 1. Acute blood loss anemia secondary to lower GI bleeding. 2. Polycytemia Vera 3. HTN 4. Recurrent UTI / Hx of ureteral stone 5. Anxiety / Insomnia 6. HLD 7. H/o PPM placement. Hospital Course: This is an 84 year old female with PMH of PPM placement, polycythemia, hypertension, recurrent UTI, anxiety, and hyperlipidemia who presented with painless rectal bleeding. Initial hemoglobin was down from her baseline. She was initially hypotensive and was transfused 1 unit improvement in her blood pressure. Shortly after admission her bleeding stopped, and she had no further episodes. She improved much more quickly than expected. Surgery was consulted whom performed colonoscopy which showed internal hemorrhoids and diverticulosis but no evidence of active bleeding. There was no evidence of malignancy. She was eating and tolerating a diet, she was advised to hold her aspirin for another day before resuming. No other changes to her chronic home medications were recommended. She should follow up with her primary care provider as previously scheduled. Time Spent with Patient Time spent: Greater than 30 minutes Exam Vital Signs (past 8 hours): - 04/01/24 04:00 04/01/24 07:57 04/01/24 08:28 Temperature 97.5 F L 97.5 F L Pulse Rate 87 96 H 96 H Respiratory Rate 19 16 16 Blood Pressure 160/89 H 149/85 H 149/85 H Pulse Oximetry 98 100 99 Oxygen Delivery Method Room Air Oxygen Flow Rate 0 04/01/24 09:10 04/01/24 09:15 04/01/24 09:20 Temperature 97.2 F L Pulse Rate 79 82 75 Respiratory Rate 16 19 14 Blood Pressure 117/58 L 125/52 L 132/66 Pulse Oximetry 99 99 99 Oxygen Delivery Method Room Air Room Air Room Air Oxygen Flow Rate 04/01/24 09:35 Temperature 97 F L Pulse Rate 88 Respiratory Rate 18 Blood Pressure 134/57 L Pulse Oximetry 99 Oxygen Delivery Method Room Air Oxygen Flow Rate Oxygen Delivery Method Room Air Oxygen Flow Rate 0 Narrative Exam Narrative: Gen: No acute distress CV RRR Pulm: No respiratory distress Abd: S NT ND Ext: no edema Objective Labs 04/01/24 04:55 04/01/24 04:55 Labs: Laboratory Results - last 24 hr 03/31/24 04/01/24 11:07 04:55 WBC 8.9 RBC 3.94 L Hgb 11.4 L 11.4 L Hct 36.5 35.8 L MCV 90.9 MCH 29.0 MCHC 31.9 RDW 19.2 H Plt Count 430 H Neut % (Auto) 68.7 Lymph % (Auto) 25.9 [place] % (Auto) 2.9 L Eos % (Auto) 2.2 Baso % (Auto) 0.3 Neut # (Auto) 6100 Lymph # (Auto) 2300 [place] # (Auto) 300 Eos # (Auto) 200 Baso # (Auto) 0 Sodium 136 L Potassium 4.4 Chloride 108 H Carbon Dioxide 22 BUN 15 Creatinine 0.60 Estimated GFR > 60 BUN/Creatinine Ratio 25.0 H Glucose 99 Calcium 9.8 Magnesium 2.1 PFSH Medical History HTN (hypertension) GERD (gastroesophageal reflux disease) Acquired polycythemia vera Social History household members: none Smoking Status: Never smoker alcohol intake: never Discharge Plan Discharge Plan Patient Disposition: Home Provider Discharge Comment: You were admitted to the hospital with rectal bleeding. Colonoscopy was fairly unremarkable, bleeding likely due to hemorrhoids or diverticulosis. Continue to hold home aspirin today, can resume tomorrow. Try to follow up with primary care provider in the next 1-2 weeks to discuss hospitalization. Discharge orders & Medications Prescriptions: Continued [CRANBERRY] 1 cap PO QDAY Qty: 0 hydroxyurea 500 mg capsule 1,000 mg PO DAILY Rx Instructions: pt takes 1,000 mg everyday once a day except which she takes 1,500 mg lisinopril 20 mg tablet 20 mg PO BID lorazepam 0.5 mg tablet 0.25 mg PO BEDTIME simvastatin 20 mg tablet 20 mg PO ONCE PM aspirin 81 mg Tablet 81 mg PO DAILY Diet/Activity/Treatments Diet: Diet as Tolerated and Regular Activity: As tolerated, no restrictions. Visit Report/Discharge Packet Instructions: DI for Hemorrhoids, DI for Diverticulosis Stand Alone Forms: Patient Portal/API, Stroke Signs & Symptoms, Colonoscopy Result: [facility]
--- NOTE | 2024-04-01 12:11 | PC.NURSE ---
Pt is dressed and ready for discharge home with friends. IV has been removed. Went over d/c instructions with Pt-discussed d/c meds, time of last dose, reviewed stroke education, encouraged Pt to drink plenty of fluids to prevent constipation or dehydration and to follow up as directed. Pt denied further questions and will be discharged out via w/c by STRUCTURAL LAYOUT WORKER to POV with friends and all belongings when her ride arrives.
--- NOTE | 2024-04-01 12:12 | CM.DANOTE ---
Initial DCP Assessment Note Pt is a 84 yo female, resident of [place], arrives with suspected GI bleed, colonoscopy this morning shows no findings except for hemorrhoids and diverticulitis. Patient has been discharged home after tolerating her lunch. 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 Patient has a strong support network of friends and family. Patient has three adult children, her oldest daughter Risa Ball is her DPOA P [phone], also a nurse, she lives in [place]. Patient denies needs from this PUBLICATIONS DESIGNER, patient in good spirits this morning and eager to eat after being NPO. No barriers identified at this time to patient's safe discharge home w/friends and family to assist as needed; close outpatient f/u recommended. Patient drive herself to the ER; transport via friend home. LIZZY May Discharge Planning/Care Management CM Discharge Assessment Start: 03/31/24 11:18 Freq: Status: Active Protocol: Document 04/01/24 12:08 KATE (Rec: 04/01/24 12:12 KATE [id number]) Discharge Planning Assessment Assigned Glass Sander LIZZY Porter/Assigned Designee Name Jose Alejandro Velázquez, spouse Contact Information [phone] Advance Directives? No History Provided By Patient,Medical Record Prior Living Arrangements House Household Members none Type of transporation used prior to Drives own vehicle admit Independent with ADL's Yes Is patient alert and oriented? Yes Barriers to Discharge No Discharge Plan Home Transportation Arrangement Friend Referrals Initiated None needed
--- NOTE | 2024-04-01 12:22 | CM.DANOTE ---
Initial DCP Assessment Note Pt is a 84 yo female, resident of [place], arrives with suspected GI bleed, colonoscopy this morning shows no findings except for hemorrhoids and diverticulitis. Patient has been discharged home after tolerating her lunch. 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 Patient has a strong support network of friends and family. Patient has three adult children, her oldest daughter Risa Ball is her DPOA P [phone], also a nurse, she lives in [place]. Patient denies needs from this COOK SUPERVISOR, patient in good spirits this morning and eager to eat after being NPO. No barriers identified at this time to patient's safe discharge home w/friends and family to assist as needed; close outpatient f/u recommended. Patient drove herself to the ER; transport via friend home today. LIZZY May Discharge Planning/Care Management CM Discharge Assessment Start: 03/31/24 11:18 Freq: Status: Active Protocol: Document 04/01/24 12:08 KATE (Rec: 04/01/24 12:12 KATE [id number]) Discharge Planning Assessment Assigned Tuber Operator LIZZY Porter DPXENIA/Assigned Designee Name Risa Ball, daughter ([place]) Contact Information [phone] Advance Directives? Yes Advance Directives on File No History Provided By Patient,Medical Record Prior Living Arrangements House Household Members none Type of transporation used prior to Drives own vehicle admit Independent with ADL's Yes Is patient alert and oriented? Yes Patient/Family Preference OP PT Therapy Barriers to Discharge No Discharge Plan Home Transportation Arrangement Friend Referrals Initiated None needed
--- NOTE | 2024-04-01 13:33 | PC.NURSE ---
Pt out via w/c by CHARGE ENTRY SPECIALIST to POV with all belongings.
== END 2024-04-01 13:36 | disposition home or self-care (01) | DRG 378 ==
LOC: ED 23:24 → AC 23:46
PROVIDERS: Internal Medicine; Surgery; Admitting Provider Internal Medicine; Emergency Provider Emergency Medicine; Referring Provider Emergency Medicine; Visit Provider Internal Medicine
PROC: 0DJD8ZZ Inspection of Lower Intestinal Tract, Via Natural or Artificial Opening Endoscopic (ICD-10-PCS; CPT 45378; principal; 2024-04-01 08:45)
DX: K57.31 Diverticulosis of large intestine without perforation or abscess with bleeding (principal); D62 Acute posthemorrhagic anemia; N39.0 Urinary tract infection, site not specified; D45 Polycythemia vera; K21.9 Gastro-esophageal reflux disease without esophagitis; I10 Essential (primary) hypertension; F41.9 Anxiety disorder, unspecified; G47.00 Insomnia, unspecified; E78.5 Hyperlipidemia, unspecified; K64.8 Other hemorrhoids; Z87.440 Personal history of urinary (tract) infections; Z95.0 Presence of cardiac pacemaker
CPT/HCPCS: 36415; 36430; 74174; 80048; 80053; 81001; 83605; 83690; 83735; 85014; 85018; 85025; 85610; 85730; 86850; 86900; 86901; 87507; 99284; 99291; P9016; J2470; J2704; Q9967

== ENCOUNTER 2024-05-03 09:29 | Emergency (ER) | payer MEDICARE, OTHER, SELFPAY ==
[2024-03-31 02:12] VITALS: BMI 25.9
[2024-05-03 09:59] VITALS: BP 217/99; PULSE 107; RESP 16; TEMP 36.4; O2SAT 98; BMI 26.6
--- NOTE | 2024-05-03 10:09 | DI.RAD.S_ITS ---
PROCEDURE: XR HIP W PEL IF DONE RT 2V INDICATIONS: R hip pain, atraumatic TECHNIQUE: 2 views of the hip were acquired. COMPARISON: None. FINDINGS: Bones: No fractures or dislocations. No suspicious bony lesions. The visualized pelvic ring appears intact. Moderate bilateral hip joint space narrowing Soft tissues: No suspicious soft tissue calcifications or masses. IMPRESSION: Moderate bilateral hip joint space narrowing without fracture or dislocation. Approved by: Dinesh Morrow M.D. on 05/03/2024 at 10:24
[2024-05-03 10:22] LABS: Appearance Urine UA CLEAR; Bilirubin Urine UA NEGATIVE (NEGATIVE); Color Urine UA YELLOW; Glucose Urine UA NEGATIVE (Negative); Ketones Urine UA NEGATIVE (NEGATIVE); Leukocyte Esterase Urine UA NEGATIVE (NEGATIVE); Nitrite Urine UA NEGATIVE (Negative); Occult Blood Urine UA 1+ (Negative); Protein Urine UA TRACE (Negative)
[2024-05-03 10:26] LABS: pH Urine UA 5.5 (4.5-8.0)
[2024-05-03 10:30] LABS: Bacteria Urine None Seen; Culture Indicated Urine Cult Not Indicated; RBC Urine 1-5/HPF (0-5/HPF); Squamous Epithelial Cell Urine 0-1 /HPF (0-5/HPF); Urine Volume 10mL (spun); WBC Urine 0-1/HPF (0-5/HPF)
--- NOTE | 2024-05-03 11:58 | ED_ITS ---
HPI - Extremity Problem <Lyric Cooley PA-C - Last Filed: 05/03/24 14:48> General Chief complaint: Extremity Problem,Nontraumatic Stated complaint: R Hip Pain Time Seen by Provider: 05/03/24 11:58 History of Present Illness HPI Narrative: pleasant 84-year-old female presents to the emergency room department complaining of right hip pain, right buttock pain. Onset several days ago. Patient states that she knows she overdid it, while doing stuff at home, she would some overhead working and using large heavy chairs as well as doing quite a bit of outdoor work which she normally does not do. Initially she had quite a bit of discomfort and pain kind of in the upper shoulders and it is kind of progressed down into her back and hip. Patient denies recent injury, trauma or fall. She does not take a lot of medications in the sense that she does not take a lot of pain medications. She did attempt Tylenol did not get a lot of relief. 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 She has not used any topical medication. She has no red flag symptoms since his loss of bowel bladder, or any numbness to vaginal area. She has no radiculopathy symptoms, she has no numbness, weakness or tingling to the extremities. She has no other further complaints currently at this time. Related Data Home Medications Medication Instructions Recorded Confirmed [CRANBERRY] 1 cap PO QDAY ##0 01/27/17 05/03/24 aspirin 81 mg tablet 81 mg PO DAILY 03/31/24 05/03/24 hydroxyurea 500 mg capsule 1,000 mg PO DAILY 03/31/24 05/03/24 lisinopril 20 mg tablet 20 mg PO BID hypertension 03/31/24 05/03/24 lorazepam 0.5 mg tablet 0.25 mg PO BEDTIME 03/31/24 05/03/24 simvastatin 20 mg tablet 20 mg PO ONCE PM 03/31/24 05/03/24 Allergies Allergy/AdvReac Type Severity Reaction Status Date / Time oxycodone [OXYCODONE] AdvReac Intermediate Irritable Verified 04/01/24 09:34 Review of Systems <Lyric Cooley PA-C - Last Filed: 05/03/24 14:48> Review of Systems Narrative: negative except as above Musculoskeletal Comments: Right-sided buttock discomfort and pain some right lateral hip pain Patient History <Lyric Cooley PA-C - Last Filed: 05/03/24 14:48> Medical History HTN (hypertension) GERD (gastroesophageal reflux disease) Acquired polycythemia vera Social History household members: none Smoking Status: Never smoker alcohol intake: never Smoking Status: Never smoker Substance Use Type: does not use Exam <Lyric Cooley PA-C - Last Filed: 05/03/24 14:48> Initial Vital Signs Initial Vital Signs: Vital Signs Temperature 97.6 F 05/03/24 09:59 Pulse Rate 107 H 05/03/24 09:59 Respiratory Rate 16 05/03/24 09:59 Blood Pressure 217/99 H 05/03/24 09:59 Pulse Oximetry 98 05/03/24 09:59 Oxygen Delivery Method Room Air 05/03/24 09:59 reviewed Const General: cooperative, healthy appearing, comfortable, well developed, well groomed, No acute distress, No in distress and No anxious Nutritional Appearance: average body habitus and well nourished Eyes General: Yes appearance normal, both eyes and all related structures Pupils: PERRL EOM: EOM intact bilaterally Back/Spine/Pelvis Thoracic/Lumbar Spine: thoracic and lumbar spine normal to inspection, No pain with thoraco-lumbar ROM, paraspinal tenderness, No thoraco-lumbar ROM limited, N o thoraco-lumbar spasm, No thoracic spinal tenderness and No lumbar spinal tenderness Sacroiliac Joints: tender to palpation Skin Other: warm pink and dry Neuro Other: cranial nerves are grossly intact, cognition, speech. Patient's gait is tested, no instability, does not appear uncomfortable, able to turn and pivot and sit on the bed without any difficulty or any obvious signs of distress. Able to put on her own shoes, able to stand up and ambulate without any major signs of distress. Some minor discomfort and pain with palpation of the right buttock, and lateral right hip. Extrem Other: Range of motion, strength, pulses, cap refill preserved in the upper and lower extremities Psych Other: parents, mental status, speech, movement, mood, affect, attitude, thought process, thought content and judgment are all within normal limits. <Cristina Guidry DO - Last Filed: 05/03/24 17:33> Initial Vital Signs Initial Vital Signs: Vital Signs Temperature 97.6 F 05/03/24 09:59 Pulse Rate 107 H 05/03/24 09:59 Respiratory Rate 16 05/03/24 09:59 Blood Pressure 217/99 H 05/03/24 09:59 Pulse Oximetry 98 05/03/24 09:59 Oxygen Delivery Method Room Air 05/03/24 09:59 Scores <Lyric Cooley PA-C - Last Filed: 05/03/24 14:48> GCS Citation: 15 Course <Lyric Cooley PA-C - Last Filed: 05/03/24 14:48> Orders Ordered: ED Orders 05/03/24 10:09 XR hip w pel if done RT 2V Stat 05/03/24 10:10 Urinalysis and Microscopic Stat Vital Signs Vital signs: Vital Signs - 8 hr 05/03/24 09:59 05/03/24 12:00 05/03/24 12:04 Temperature 97.6 F Pulse Rate 107 H 107 H Respiratory Rate 16 Blood Pressure 217/99 H 209/107 H Pulse Oximetry 98 96 Oxygen Delivery Method Room Air Room Air 05/03/24 12:04 Temperature Pulse Rate 103 H Respiratory Rate 18 Blood Pressure Pulse Oximetry 97 Oxygen Delivery Method Room Air reviewed <Cristina Guidry DO - Last Filed: 05/03/24 17:33> Orders Ordered: ED Orders 05/03/24 10:09 XR hip w pel if done RT 2V Stat 05/03/24 10:10 Urinalysis and Microscopic Stat Vital Signs Vital signs: Vital Signs - 8 hr 05/03/24 09:59 05/03/24 12:00 05/03/24 12:04 Temperature 97.6 F Pulse Rate 107 H 107 H Respiratory Rate 16 Blood Pressure 217/99 H 209/107 H Pulse Oximetry 98 96 Oxygen Delivery Method Room Air Room Air 05/03/24 12:04 Temperature Pulse Rate 103 H Respiratory Rate 18 Blood Pressure Pulse Oximetry 97 Oxygen Delivery Method Room Air MDM - Extremity (Nontraumatic) <Lyric Cooley PA-C - Last Filed: 05/03/24 14:48> Lab Data Lab results narrative: her urine today shows some gross hematuria, she has a history of hematuria, they are not well like cells, no nitrites, no leuk esterase, no UTI. Labs: Lab Results 05/03/24 Range/Units 10:10 Urine Color Yellow Urine Appearance Clear Urine pH 5.5 (4.5-8.0) Ur Specific [place] 1.020 (1.000-1.035) Urine Protein Trace H (Negative) Urine Glucose (UA) Negative (Negative) g/dL Urine Ketones Negative (NEGATIVE) Urine Occult Blood 1+ H (Negative) Urine Nitrate Negative (Negative) Urine Bilirubin Negative (NEGATIVE) Urine Urobilinogen 1.0 (0.2) E.U./dL Ur Leukocyte Esterase Negative (NEGATIVE) Urine RBC 1-5/hpf (0-5/HPF) Urine WBC 0-1/hpf (0-5/HPF) Ur Squamous Epith Cells 0-1 /hpf (0-5/HPF) Urine Bacteria None seen (None) Ur Culture Indicated? Cult not indicated Vol Urine Centrifuged 10ml (spun) Imaging Data Extremity x-ray #1: Radiologist's Impression: [place] [address] XRay Report Signed Patient: Juana Chapman MR#: [id number] : 1940 Acct:[id number] Age/Sex: 84 / F Date of Service: 05/03/24 Loc: ED Accession Number: [id number] Procedure: XR hip w pel if done RT 2V Ordering Provider: Cristina Guidry D.O. PROCEDURE: XR HIP W PEL IF DONE RT 2V INDICATIONS: R hip pain, atraumatic TECHNIQUE: 2 views of the hip were acquired. COMPARISON: None. FINDINGS: Bones: No fractures or dislocations. No suspicious bony lesions. The visualized pelvic ring appears intact. Moderate bilateral hip joint space narrowing Soft tissues: No suspicious soft tissue calcifications or masses. IMPRESSION: Moderate bilateral hip joint space narrowing without fracture or dislocation. Approved by: Dinesh Morrow M.D. on 05/03/2024 at 10:24 MDM Narrative Medical decision making narrative: Pleasant 84-year-old female presents to the emergency room department today complaining of right buttock and right lateral hip pain. Patient has had the pain and discomfort ongoing, and affecting her sleep. Associated with doing too much in the yd. Patient tried Tylenol with some minimal relief, no topical preparations. She has a retired nurse, presented to the emergency department because she want to make sure she did not have some type of pathologic fracture to the right hip. She is able to do all her activities, she has not had any recent injury, trauma or fall. She feels this is all associated with overactivity in the garden. Biggest issue is she is having difficulties getting some rest, no red flag symptoms. Her exam is negative for any substantial acute findings. Reviewed with her currently at this point in time her x-rays negative for any acute findings, she does not have a fractured hip. She does have arthritic changes associated with advanced age. Her daughter is a nurse, daughter in the room with her. Exam is completed, currently at this time I think we have decided that the patient will do [id number] supportive therapy, we have discussed topicals, we have decided that the patient is going to attempt to use a leave in the place of Tylenol. She is going to do slow range of motion, she is going to use ice and heat. Currently at this time the patient does not want to do anything except nonsteroidals. She does have Ativan at home that she can use to help her sleep. Patient will be discharged in stable condition. Differential diagnosis; hip pain, hip strain, bursitis, sciatic nerve pain, myofascial strain lumbar, paraspinal lumbar discomfort and pain, tendonitis, ITB band syndrome. <Cristina Guidry, - Last Filed: 05/03/24 17:33> Lab Data Labs: Lab Results 05/03/24 Range/Units 10:10 Urine Color Yellow Urine Appearance Clear Urine pH 5.5 (4.5-8.0) Ur Specific [place] 1.020 (1.000-1.035) Urine Protein Trace H (Negative) Urine Glucose (UA) Negative (Negative) g/dL Urine Ketones Negative (NEGATIVE) Urine Occult Blood 1+ H (Negative) Urine Nitrate Negative (Negative) Urine Bilirubin Negative (NEGATIVE) Urine Urobilinogen 1.0 (0.2) E.U./dL Ur Leukocyte Esterase Negative (NEGATIVE) Urine RBC 1-5/hpf (0-5/HPF) Urine WBC 0-1/hpf (0-5/HPF) Ur Squamous Epith Cells 0-1 /hpf (0-5/HPF) Urine Bacteria None seen (None) Ur Culture Indicated? Cult not indicated Vol Urine Centrifuged 10ml (spun) Discharge Plan Departure Patient Disposition: Home Clinical Impression: Bursitis Qualifiers: Bursitis location: hip Hip bursitis location: unspecified Laterality: right Qualified Code(s): M70.71 - Other bursitis of hip, right hip Activity Restrictions/Additional Instructions: consider trying Aleve ice and heat to the hip and back diclofenac/Voltaren, Aspercreme, Biofreeze, icy hot, consider even CBD these are all topical these are all [id number] continue to keep active consider your activities and minimize any type of major activities that you know we are going to cause him musculoskeletal discomfort and pain follow up with your primary care doctor please be careful with the Ativan that you have we have decided not to prescribe any medications here in the emergency department Prescriptions: No Action [CRANBERRY] 1 cap PO QDAY Qty: 0 hydroxyurea 500 mg capsule 1,000 mg PO DAILY Rx Instructions: pt takes 1,000 mg everyday once a day except which she takes 1,500 mg lisinopril 20 mg tablet 20 mg PO BID lorazepam 0.5 mg tablet 0.25 mg PO BEDTIME simvastatin 20 mg tablet 20 mg PO ONCE PM aspirin 81 mg Tablet 81 mg PO DAILY Stand Alone Forms: Patient Portal/API ED Sign-out <Cristina Guidry DO - Last Filed: 05/03/24 17:33> Cosign ED Attending Jeffature Attestation: I was available for consultation.
[2024-05-03 12:00] VITALS: PULSE 107; O2SAT 96
[2024-05-03 12:04] VITALS: BP 209/107; PULSE 103; RESP 18; O2SAT 97
== END 2024-05-03 12:58 | disposition home or self-care (01) ==
PROVIDERS: Emergency Medicine; Emergency Provider Physician Assistant
DX: M70.71 Other bursitis of hip, right hip (principal); X50.0XXA Overexertion from strenuous movement or load, initial encounter; I10 Essential (primary) hypertension; Z79.899 Other long term (current) drug therapy
CPT/HCPCS: 73502; 81001; 99281; 99283

== ENCOUNTER 2024-07-01 10:27 | Inpatient (IN) | payer MEDICARE, OTHER, SELFPAY ==
[2024-03-31 02:12] VITALS: BMI 25.9
[2024-07-01] VITALS (23 sets, daily range): BP systolic 76–163; BP diastolic 42–78; PULSE 60–107; RESP 16–31; TEMP 35.6–36.8; O2SAT 94–100; BMI 26.6
--- NOTE | 2024-07-01 11:02 | ED.GIBLEED ---
HPI - GI Bleed General Chief complaint: GI Bleed Stated complaint: rectal bleeding Time Seen by Provider: 07/01/24 10:55 Source: patient Mode of arrival: Family Vehicle History of Present Illness HPI Narrative: Patient here with a friend. Complains 4 bouts of bright red blood per rectum in the toilet this morning at 6:00 a.m.. No syncope. No abdominal pain. No shortness a breath. No dizziness. No chest pain or back pain. Patient just admitted here March 2024 for the same complaints. Had 1 transfusion of PRBC. Had colonoscopy that only showed diverticulosis. Patient is only on baby aspirin daily. No other blood thinners. Is on hydroxyurea. No clots in the blood this morning. Related Data Home Medications Medication Instructions Recorded Confirmed [CRANBERRY] 1 cap PO QDAY ##0 01/27/17 07/01/24 aspirin 81 mg tablet 81 mg PO DAILY 03/31/24 07/01/24 hydroxyurea 500 mg capsule 1,000 mg PO DAILY 03/31/24 07/01/24 lisinopril 20 mg tablet 20 mg PO BID hypertension 03/31/24 07/01/24 lorazepam 0.5 mg tablet 0.25 mg PO BEDTIME 03/31/24 07/01/24 simvastatin 20 mg tablet 20 mg PO ONCE PM 03/31/24 07/01/24 Previous Rx's Medication Instructions Recorded cephalexin 250 mg capsule 500 mg (2 x 250 mg) PO QID #7 caps 07/04/24 Allergies Allergy/AdvReac Type Severity Reaction Status Date / Time oxycodone [OXYCODONE] AdvReac Intermediate Irritable Verified 07/01/24 10:45 Review of Systems Review of Systems Narrative: GENERAL: Negative chills, fatigue, malaise, fever, sweats. HEENT: Negative sinus pain, ear pain, sore throat RESPIRATORY: Negative dyspnea, cough CARDIOVASCULAR: Negative chest pain, palpitations GASTROINTESTINAL: Negative nausea, vomiting, abdominal pain, positive blood in stool : Negative dysuria, frequency, hematuria MUSCULOSKELETAL: Negative muscle or bony pain SKIN: Negative rash, skin lesions NEUROLOGIC: Negative weakness, numbness ROS Unobtainable: All systems reviewed & are unremarkable except as noted in HPI and below Patient History Medical History HTN (hypertension) GERD (gastroesophageal reflux disease) Acquired polycythemia vera Social History household members: none Smoking Status: Never smoker alcohol intake: never Smoking Status: Never smoker Exam Narrative Exam Narrative: GENERAL: in no distress, not toxic not dyspneic HEAD: Normocephalic. EYES: Pupils equal round, pink conjunctiva ENT: Mucous membranes moist. NECK: Trachea midline. CARDIOVASCULAR: Regular rate and rhythm RESPIRATORY: Clear to auscultation. Breath sounds equal bilaterally. No wheezes, rales, or rhonchi. GASTROINTESTINAL: Abdomen soft, non-tender, no peritoneal signs bowel sounds are positive. No rebound no guarding. EXTREMITIES: No gross deformities. BACK: No flank tenderness. NEURO: AOx4. SKIN: Warm and dry PSYCH: Not anxious, is cooperative Initial Vital Signs Initial Vital Signs: Vital Signs Temperature 97.2 F L 07/01/24 10:41 Pulse Rate 107 H 07/01/24 10:41 Respiratory Rate 22 07/01/24 10:41 Blood Pressure 133/76 07/01/24 10:41 Pulse Oximetry 99 07/01/24 10:41 Oxygen Delivery Method Room Air 07/01/24 10:41 Course Orders Ordered: Discontinued Medications Acetaminophen (Acetaminophen 325 Mg Tablet) 650 mg PO Q6H PRN PRN Reason: Fever/Mild Pain (1-3) Last Admin: 07/02/24 22:36 Dose: 650 mg Documented By: Bisacodyl (Bisacodyl 5 Mg Tablet) 5 mg PO NOW ONE Stop: 07/01/24 14:30 Last Admin: 07/01/24 15:26 Dose: 5 mg Documented By: LILLY Cephalexin HCl (Cephalexin 250 Mg Capsule) 500 mg PO QID [facility] Last Admin: 07/04/24 09:31 Dose: 500 mg Documented By: Admin: 07/03/24 21:19 Dose: 500 mg Documented By: Admin: 07/03/24 18:44 Dose: 500 mg Documented By: Admin: 07/03/24 15:49 Dose: 500 mg Documented By: Admin: 07/03/24 10:47 Dose: 500 mg Documented By: CLL Sodium Chloride (Normal Saline 0.9%) 1,000 mls @ 1,000 mls/hr IV BOLUS ONE Stop: 07/01/24 12:52 Last Infusion: 07/01/24 12:47 Dose: Infused Documented By: Admin: 07/01/24 12:47 Dose: 1,000 mls/hr Documented By: MATTEO Sodium Chloride (Normal Saline 0.9%) 1,000 mls @ 200 mls/hr IV CONT CHRISTI Last Admin: 07/01/24 16:40 Dose: Not Given Documented By: LILLY Dextrose/Sodium Chloride (Dextrose 5%-0.9% Ns) 1,000 mls @ 100 mls/hr IV CONT CHRISTI Last Infusion: 07/03/24 19:17 Dose: Infused Documented By: Admin: 07/02/24 12:10 Dose: 100 mls/hr Documented By: Infusion: 07/02/24 12:04 Dose: Infused Documented By: Admin: 07/02/24 02:04 Dose: 100 mls/hr Documented By: Infusion: 07/02/24 02:04 Dose: Infused Documented By: Admin: 07/01/24 16:41 Dose: 100 mls/hr Documented By: LILLY Sodium Chloride (Normal Saline 0.9%) 500 mls @ 1,000 mls/hr IV BOLUS ONE Stop: 07/02/24 11:35 Last Infusion: 07/02/24 15:56 Dose: Infused Documented By: Admin: 07/02/24 11:24 Dose: 1,000 mls/hr Documented By: LILLY Sodium Chloride (Normal Saline 0.9%) 500 mls @ 1,000 mls/hr IV BOLUS ONE Stop: 07/02/24 14:35 Last Infusion: 07/02/24 15:57 Dose: Infused Documented By: Admin: 07/02/24 14:20 Dose: 1,000 mls/hr Documented By: LILLY Naloxone HCl (Naloxone 0.4 Mg/Ml Vial) 0.2 mg IV Q2MIN PRN PRN Reason: Opiate Reversal Ondansetron HCl (Ondansetron 4 Mg/2 Ml Inj) 4 mg IV NOW PRN PRN Reason: Nausea And Vomiting Ondansetron HCl (Ondansetron 4 Mg Odt) 4 mg SL NOW PRN PRN Reason: Nausea And Vomiting Ondansetron HCl (Ondansetron 4 Mg/2 Ml Inj) 4 mg IV Q8HR PRN PRN Reason: Nausea And Vomiting Pantoprazole Sodium (Pantoprazole 40 Mg Vial) 80 mg IV NOW ONE Stop: 07/01/24 10:40 Last Admin: 07/01/24 11:41 Dose: 80 mg Documented By: MATTEO Pantoprazole Sodium (Pantoprazole 40 Mg Vial) 40 mg IV BID [facility] Last Admin: 07/03/24 21:19 Dose: 40 mg Documented By: Admin: 07/03/24 08:49 Dose: 40 mg Documented By: Admin: 07/02/24 20:06 Dose: 40 mg Documented By: Admin: 07/02/24 09:57 Dose: 40 mg Documented By: LILLY Polyethylene Glycol/Electrolytes (Tli1944/Sod Sulf,Bicarb,Cl/Kcl 4,000 Ml Solution) 4,000 ml PO NOW ONE Stop: 07/01/24 14:30 Last Admin: 07/01/24 15:22 Dose: 4,000 ml Documented By: LILLY Potassium Chloride (Potassium Chloride 20 Meq Tab) 20 meq PO NOW ONE; Protocol Stop: 07/03/24 10:31 Last Admin: 07/03/24 10:50 Dose: 20 meq Documented By: SANDRITA Vital Signs Vital signs: Vital Signs - 8 hr 07/01/24 10:41 07/01/24 11:02 07/01/24 11:05 Temperature 97.2 F L Pulse Rate 107 H 100 H Respiratory Rate 22 Blood Pressure 133/76 155/68 H Pulse Oximetry 99 Oxygen Delivery Method Room Air 07/01/24 11:30 07/01/24 11:56 07/01/24 11:56 Temperature Pulse Rate 96 H 60 Respiratory Rate 17 Blood Pressure 76/42 L Pulse Oximetry 98 94 Oxygen Delivery Method 07/01/24 11:57 07/01/24 11:57 07/01/24 12:00 Temperature Pulse Rate 71 85 Respiratory Rate 24 29 H Blood Pressure 82/47 L Pulse Oximetry 96 98 Oxygen Delivery Method 07/01/24 12:00 07/01/24 12:05 07/01/24 12:05 Temperature Pulse Rate 83 Respiratory Rate 24 Blood Pressure 88/52 L 103/51 L Pulse Oximetry 96 Oxygen Delivery Method 07/01/24 12:10 07/01/24 12:10 07/01/24 12:15 Temperature Pulse Rate 80 Respiratory Rate 16 Blood Pressure 113/55 L 116/57 L Pulse Oximetry 98 Oxygen Delivery Method 07/01/24 12:15 07/01/24 12:20 07/01/24 12:20 Temperature Pulse Rate 80 85 Respiratory Rate 16 16 Blood Pressure 130/60 Pulse Oximetry 99 100 Oxygen Delivery Method 07/01/24 12:25 07/01/24 12:25 07/01/24 12:30 Temperature Pulse Rate 89 84 Respiratory Rate 31 H 22 Blood Pressure 125/61 Pulse Oximetry 100 100 Oxygen Delivery Method 07/01/24 12:30 07/01/24 12:35 07/01/24 12:35 Temperature Pulse Rate 81 Respiratory Rate 22 Blood Pressure 132/78 126/73 Pulse Oximetry 99 Oxygen Delivery Method 07/01/24 12:40 07/01/24 12:40 07/01/24 12:45 Temperature Pulse Rate 78 81 Respiratory Rate 16 24 Blood Pressure 129/60 Pulse Oximetry 100 99 Oxygen Delivery Method 07/01/24 12:45 07/01/24 13:00 07/01/24 13:00 Temperature Pulse Rate 84 Respiratory Rate 23 Blood Pressure 125/59 L 144/65 H Pulse Oximetry 100 Oxygen Delivery Method MDM - GI Bleed Lab Data 07/04/24 05:20 07/04/24 05:20 Labs: Lab Results 07/01/24 07/01/24 Range/Units 11:09 13:02 WBC 13.5 H 12.1 H (4.5-11.0) X10^3/uL RBC 4.42 3.45 L (4.0-5.2) X10^6/uL Hgb 12.4 9.8 L (12.0-16.0) g/dL Hct 40.7 31.6 L (36-46) % MCV 92.2 91.4 (80-100) fL MCH 28.2 28.5 (26-34) PG MCHC 30.5 31.1 (30-36) % RDW 19.1 H 19.0 H (11.6-14.8) % Plt Count 556 H 352 (150-400) X10^3/uL Neut % (Auto) 85.2 H 85.9 H (50-75) % Lymph % (Auto) 11.3 L 11.0 L (25-40) % [place] % (Auto) 1.7 L 1.9 L (3-14) % Eos % (Auto) 1.3 L 1.0 L (2-4) % Baso % (Auto) 0.5 0.2 (0-2) % Neut # (Auto) 65060 H 83797 H (0368-8361) /uL Lymph # (Auto) 1500 1300 (4899-9847) /uL [place] # (Auto) 200 200 (0-900) /uL Eos # (Auto) 200 100 (0-450) /uL Baso # (Auto) 100 0 (0-100) /uL PT 12.3 (9.4-12.5) SECONDS INR 1.1 (0.9-1.3) APTT 38 H (25.1-36.5) SECONDS Sodium 136 L (137-145) mmol/L Potassium 4.1 (3.4-5.1) mmol/L Chloride 107 (98-107) mmol/L Carbon Dioxide 22 (22-32) mmol/L BUN 18 H (7-17) mg/dL Creatinine 0.70 (0.52-1.04) mg/dL Estimated GFR > 60 (>60) mL/min BUN/Creatinine Ratio 25.7 H (6-22) Glucose 118 H (80-110) mg/dL Calcium 9.9 (8.4-10.2) mg/dL Total Bilirubin 0.9 (0.2-1.3) mg/dL AST 34 (14-36) IU/L ALT 24 (<35) IU/L Alkaline Phosphatase 119 (38-126) U/L Total Protein 7.6 (6.3-8.2) g/dL Albumin 4.7 (3.5-5.0) g/dL Globulin 2.9 (1.7-4.1) g/dL Albumin/Globulin Ratio 1.6 (1.0-2.8) Blood Type O Positive Antibody Screen Negative Crossmatch See Detail Imaging Data Abdominal x-ray: Radiologist's Impression: [address] [address] XRay Report Signed Patient: Juana Chapman MR#: [id number] : 1940 Acct:[id number] Age/Sex: 84 / F Date of Service: 07/01/24 Loc: ED Accession Number: [id number] Procedure: XR abdomen 1V Ordering Provider: Gary Navarrete MD PROCEDURE: XR ABDOMEN 1V INDICATIONS: Abdominal pain TECHNIQUE: One view of the abdomen acquired. COMPARISON: None. FINDINGS: Surgical changes and devices: Cholecystectomy changes. Bowel: Bowel gas pattern is normal. Soft tissues: No suspicious abdominal calcifications. Visualized solid organ contours appear normal in size. Bones: No suspicious bony lesions. Moderate levoscoliosis of the lumbar spine. IMPRESSION: 1. No acute abnormality. 2. 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 Dictated by: Wil Lopez M.D. on 07/01/2024 at 13:08 Approved by: Wil Lopez M.D. on 07/01/2024 at 13:09 [facility] Narrative Medical decision making narrative: Patient here with a friend. Complains 4 bouts of bright red blood per rectum in the toilet this morning at 6:00 a.m.. No syncope. No abdominal pain. No shortness a breath. No dizziness. No chest pain or back pain. Patient just admitted here March 2024 for the same complaints. Had 1 transfusion of PRBC. Had colonoscopy that only showed diverticulosis. Patient is only on baby aspirin daily. No other blood thinners. Is on hydroxyurea. No clots in the blood this morning After history and exam MDM Medical records reviewed: Admission discharge summary colonoscopy from March 2024 Differential considered: Includes but not limited to diverticulosis upper GI bleed lower GI bleed Lab Test results independently reviewed as above. Pertinent findings: Hemoglobin shift 12.4 lowered now 9.8 Independently reviewed pacemaker interrogation reviewed with [employer] litigation claim representative. No will arrhythmia. Imaging studies independently reviewed: X-ray abdomen no acute finding Consultations: 11:53 a.m.. Spoke with general surgeon Dr. Russo, patient tachycardic on arrival. Give 1 L normal saline and recheck CBC for any changes. 1:30 p.m.. Spoke with surgeon again, hemoglobin has dropped. Recommends admit to hospitalist, who will scope endoscopy/tomorrow. EGD and colonoscopy. 1:[address] Bueno, hospitalist, who will admit patient Treatments: Normal saline Re-evaluations: 1:35 p.m.. Updated patient results. Will need transfusion. Will need EGD as well as colonoscopy. Agrees for admission. Discussion: Appropriate for admission for significant blood loss and for transfusion and endoscopy. Diagnosis: Acute GI bleed Critical Care Time Critical Care Time Attestation: Critical Care Time 35 minutes: Critical care time is separate from other billable procedures. This critical care time includes consultation with family and other consulting doctors, review of records, and interpretation of data from labs, EKGs, imaging, etc. Discharge Plan Departure Patient Disposition: Admitted as Observation Clinical Impression: Acute GI bleeding Admit Date/Time: 07/01/24 14:20 Admit Provider: Caleb Bueno
[2024-07-01 11:19] LABS: Add Manual Diff / Slide Review NO; Basophils Absolute Auto 100 /uL (0-100); Basophils Percent Auto 0.5 % (0-2); Eosinophils Absolute Auto 200 /uL (0-450); Eosinophils Percent Auto 1.3 % (2-4); Hematocrit 40.7 % (36-46); Hemoglobin 12.4 g/dL (12.0-16.0); Lymphocytes Absolute Auto 1500 /uL (1100-4500); Lymphocytes Percent Auto 11.3 % (25-40); Mean Corpuscular HGB Conc 30.5 % (30-36); Mean Corpuscular Hemoglobin 28.2 PG (26-34); Mean Corpuscular Volume 92.2 fL (80-100); Monocytes Absolute Auto 200 /uL (0-900); Monocytes Percent Auto 1.7 % (3-14); Neutrophils Absolute Auto 11500 /uL (1500-7000); Neutrophils Percent Auto 85.2 % (50-75); Platelet Count 556 X10^3/uL (150-400); Red Blood Cell Count 4.42 X10^6/uL (4.0-5.2); Red Cell Distribution Width 19.1 % (11.6-14.8); White Blood Cell Count 13.5 X10^3/uL (4.5-11.0)
[2024-07-01 11:29] LABS: PTT Partial Thromboplastin Tim 38 SECONDS (25.1-36.5)
[2024-07-01 11:31] LABS: Alanine Aminotransferase 24 IU/L (<35); Albumin 4.7 g/dL (3.5-5.0); Albumin Globulin Ratio 1.6 (1.0-2.8); Alkaline Phosphatase 119 U/L (38-126); Aspartate Aminotransferase 34 IU/L (14-36); BUN Creatinine Ratio 25.7 (6-22); Bilirubin Total 0.9 mg/dL (0.2-1.3); Blood Urea Nitrogen 18 mg/dL (7-17); Calcium 9.9 mg/dL (8.4-10.2); Carbon Dioxide 22 mmol/L (22-32); Chloride 107 mmol/L (98-107); Estimated Glomerular Filt Rate > 60 mL/min (>60); Globulin 2.9 g/dL (1.7-4.1); Glucose 118 mg/dL (80-110); HEMOLYSIS < 15 (0-50); Potassium 4.1 mmol/L (3.4-5.1); Sodium 136 mmol/L (137-145); Total Protein 7.6 g/dL (6.3-8.2)
[2024-07-01] MEDS: PANTOPRAZOLE 40 MG VIAL 80 MG IV (11:41)
[2024-07-01 12:07] LABS: INR 1.1 (0.9-1.3); Prothrombin Time 12.3 SECONDS (9.4-12.5)
--- NOTE | 2024-07-01 12:08 | PC.NURSE ---
Patient here in department for four episodes of blood streaked BM's this AM, had similar symptoms back in march and was admitted. In department patient became very dizzy and BP dropped to 76/42, bolus of fluids started, laid the patient flat and provider Landon at bedside, placed the patient on 2L for comfort. 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
[2024-07-01] MEDS: SODIUM CHLORIDE 0.9% 1,000 ML 1000 ML IV (12:47)
[2024-07-01 13:16] LABS: Add Manual Diff / Slide Review NO; Basophils Absolute Auto 0 /uL (0-100); Basophils Percent Auto 0.2 % (0-2); Eosinophils Absolute Auto 100 /uL (0-450); Hematocrit 31.6 % (36-46); Hemoglobin 9.8 g/dL (12.0-16.0); Lymphocytes Absolute Auto 1300 /uL (1100-4500); Mean Corpuscular HGB Conc 31.1 % (30-36); Mean Corpuscular Hemoglobin 28.5 PG (26-34); Mean Corpuscular Volume 91.4 fL (80-100); Monocytes Absolute Auto 200 /uL (0-900); Monocytes Percent Auto 1.9 % (3-14); Neutrophils Absolute Auto 10400 /uL (1500-7000); Neutrophils Percent Auto 85.9 % (50-75); Platelet Count 352 X10^3/uL (150-400); Red Blood Cell Count 3.45 X10^6/uL (4.0-5.2); White Blood Cell Count 12.1 X10^3/uL (4.5-11.0)
--- NOTE | 2024-07-01 14:25 | P.CONS_ITS ---
History of Present Illness Consult details Date Patient Seen: 07/01/24 Time Patient Seen: 14:26 Chief complaint: rectal bleeding Reason for consult: Rectal bleeding requiring transfusion Requesting provider: Gary Navarrete Narrative: This is an 84-year-old white female who underwent colonoscopy and hemorrhoid treatment back in March now had dramatic bright red blood per rectum. She states she has had a poor appetite has not been eating well since her 2 years ago. She has a retired nurse. She presented to the ER initially with a hemaglobin of 12 which dropped to 9 with 1 L of fluid. She has polycythemia vera and normally runs between 14 and 15. Meds Home Medications and Allergies Home Medications Medication Instructions Recorded Confirmed Type [CRANBERRY] 1 cap PO QDAY ##0 01/27/17 05/03/24 History aspirin 81 mg tablet 81 mg PO DAILY 03/31/24 05/03/24 History hydroxyurea 500 mg capsule 1,000 mg PO DAILY 03/31/24 05/03/24 History lisinopril 20 mg tablet 20 mg PO BID hypertension 03/31/24 05/03/24 History lorazepam 0.5 mg tablet 0.25 mg PO BEDTIME 03/31/24 05/03/24 History simvastatin 20 mg tablet 20 mg PO ONCE PM 03/31/24 05/03/24 History Allergies Allergy/AdvReac Type Severity Reaction Status Date / Time oxycodone [OXYCODONE] AdvReac Intermediate Irritable Verified 07/01/24 10:45 Review of Systems Review of Systems ROS: Yes All systems reviewed with the patient and are negative except as otherwise documented Exam Vital Signs (past 8 hours): - 07/01/24 10:41 07/01/24 11:02 07/01/24 11:05 Temperature 97.2 F L Pulse Rate 107 H 100 H Respiratory Rate 22 Blood Pressure 133/76 155/68 H Blood Pressure [Left Arm] Pulse Oximetry 99 Oxygen Delivery Method Room Air 07/01/24 11:30 07/01/24 11:56 07/01/24 11:56 Temperature Pulse Rate 96 H 60 Respiratory Rate 17 Blood Pressure 76/42 L Blood Pressure [Left Arm] Pulse Oximetry 98 94 Oxygen Delivery Method 07/01/24 11:57 07/01/24 11:57 07/01/24 12:00 Temperature Pulse Rate 71 85 Respiratory Rate 24 29 H Blood Pressure 82/47 L Blood Pressure [Left Arm] Pulse Oximetry 96 98 Oxygen Delivery Method 07/01/24 12:00 07/01/24 12:05 07/01/24 12:05 Temperature Pulse Rate 83 Respiratory Rate 24 Blood Pressure 88/52 L 103/51 L Blood Pressure [Left Arm] Pulse Oximetry 96 Oxygen Delivery Method 07/01/24 12:10 07/01/24 12:10 07/01/24 12:15 Temperature Pulse Rate 80 Respiratory Rate 16 Blood Pressure 113/55 L 116/57 L Blood Pressure [Left Arm] Pulse Oximetry 98 Oxygen Delivery Method 07/01/24 12:15 07/01/24 12:20 07/01/24 12:20 Temperature Pulse Rate 80 85 Respiratory Rate 16 16 Blood Pressure 130/60 Blood Pressure [Left Arm] Pulse Oximetry 99 100 Oxygen Delivery Method 07/01/24 12:25 07/01/24 12:25 07/01/24 12:30 Temperature Pulse Rate 89 84 Respiratory Rate 31 H 22 Blood Pressure 125/61 Blood Pressure [Left Arm] Pulse Oximetry 100 100 Oxygen Delivery Method 07/01/24 12:30 07/01/24 12:35 07/01/24 12:35 Temperature Pulse Rate 81 Respiratory Rate 22 Blood Pressure 132/78 126/73 Blood Pressure [Left Arm] Pulse Oximetry 99 Oxygen Delivery Method 07/01/24 12:40 07/01/24 12:40 07/01/24 12:45 Temperature Pulse Rate 78 81 Respiratory Rate 16 24 Blood Pressure 129/60 Blood Pressure [Left Arm] Pulse Oximetry 100 99 Oxygen Delivery Method 07/01/24 12:45 07/01/24 13:00 07/01/24 13:00 Temperature Pulse Rate 84 Respiratory Rate 23 Blood Pressure 125/59 L 144/65 H Blood Pressure [Left Arm] Pulse Oximetry 100 Oxygen Delivery Method 07/01/24 13:47 07/01/24 14:00 07/01/24 14:07 Temperature 98.0 F 98.0 F 98.2 F Pulse Rate 90 87 87 Respiratory Rate 18 16 18 Blood Pressure 141/62 H 151/70 H Blood Pressure [Left Arm] 151/70 H Pulse Oximetry 96 Oxygen Delivery Method Room Air Oxygen Delivery Method Room Air Narrative Exam Narrative: Gen: NAD, sitting comfortably in bed, appears well HEENT: Sclera are anicteric, head is normocephalic and atraumatic, trachea is midline. CV: RRR, no JVD Resp: clear to auscultation bilaterally, equal chest wall movement bilaterally Abd: soft, nontender, normoactive bowel sounds Ext: no edema, full range of motion Neuro: Cranial nerves II-XII grossly intact, no focal deficits Skin: No erythema or ecchymosis Objective Labs 07/01/24 13:02 07/01/24 11:09 Labs: Laboratory Results - last 24 hr 07/01/24 07/01/24 11:09 13:02 WBC 13.5 H 12.1 H RBC 4.42 3.45 L Hgb 12.4 9.8 L Hct 40.7 31.6 L MCV 92.2 91.4 MCH 28.2 28.5 MCHC 30.5 31.1 RDW 19.1 H 19.0 H Plt Count 556 H 352 Neut % (Auto) 85.2 H 85.9 H Lymph % (Auto) 11.3 L 11.0 L [place] % (Auto) 1.7 L 1.9 L Eos % (Auto) 1.3 L 1.0 L Baso % (Auto) 0.5 0.2 Neut # (Auto) 37977 H 87717 H Lymph # (Auto) 1500 1300 [place] # (Auto) 200 200 Eos # (Auto) 200 100 Baso # (Auto) 100 0 PT 12.3 INR 1.1 APTT 38 H Sodium 136 L Potassium 4.1 Chloride 107 Carbon Dioxide 22 BUN 18 H Creatinine 0.70 Estimated GFR > 60 BUN/Creatinine Ratio 25.7 H Glucose 118 H Calcium 9.9 Total Bilirubin 0.9 AST 34 ALT 24 Alkaline Phosphatase 119 Total Protein 7.6 Albumin 4.7 Globulin 2.9 Albumin/Globulin Ratio 1.6 Blood Type O Positive Antibody Screen Negative Crossmatch See Detail [facility] Medical History HTN (hypertension) GERD (gastroesophageal reflux disease) Acquired polycythemia vera Social History household members: none Tobacco & Substance Use Smoking Status: Never smoker alcohol intake: never Assessment & Plan Assessment and plan (1) Acute GI bleeding: Status: Acute Assessment & Plan narrative: Explained to the patient that this may be diverticular bleeding or hemorrhoidal bleeding. However I can not find record of an upper scope is gastric ulcers is a possibility given her poor appetite and poor eating. Risks, benefits, alternatives were explained patient agrees come in the hospital for monitoring, bowel prep today for an EGD and colonoscopy tomorrow. Patient presents for initial screening colonoscopy Risks, benefits, alternatives to colonoscopy explained, including but not limited to bowel perforation or other serious complication requiring surgery at less than 1 in 5000 colonoscopies, abdominal pain, cramping or bleeding and less than 1% of colonoscopies, and the chances that we find a diagnosis that would require further intervention of about 2%. Patient agrees to proceed. Time-Based Coding :: [TOTAL MINUTES] spent with patient and on the chart (including review of chart, obtaining history, exam, reviewing outside data, placing orders, documenting exam and treatment plan, and counseling patient) on [DATE].
--- NOTE | 2024-07-01 14:45 | PC.NURSE ---
Patient arrived to room at 1445 this afternoon. She is A&OX4, VSS, on RA. She is receiving one unit of blood initiated in ED. MD Russo at bedside explaining that patient will be on a clear liquid diet until midnight and then NPO after midnight and to start go lytely prep now. Admission assessment completed, monitored on blood transfusion, frequent rounding, oriented to unit and room.
[2024-07-01] MEDS: PEG3350/SOD SULF,BICARB,CL/KCL 4,000 ML SOLUTION 4000 ML PO (15:22)
[2024-07-01] MEDS: BISACODYL 5 MG TABLET PO (15:26)
[2024-07-01] MEDS: DEXTROSE 5%-0.9% NS 1,000 ML 100 ML IV (16:41)
--- NOTE | 2024-07-01 17:02 | PM.HP.1 ---
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 She was currently living alone, having been about 2 years ago. She presents now with 3 episodes of bright red blood per rectum which started this morning. No abdominal pain, or recent nausea, or vomiting. She had a similar episode several months ago and had colonoscopy revealing hemorrhoids. Her stools have recently been soft. She denies any recent fevers, or chills. She does not have a history of polyps or diverticular bleed in the past. Her previous episode involving hemorrhoids was painless, and these were likely internal. She was given a unit of blood in the emergency department, her vital signs were otherwise stable. She was seen by General surgery who recommended a prep for colonoscopy in the morning. Level care: We discussed her POLST and level of care wishes. She was DNR and would not want to be on a ventilator. She was fine with blood products, fluid resuscitation and transient pressors in the ICU for blood pressure support. [facility] Medical History HTN (hypertension) GERD (gastroesophageal reflux disease) Acquired polycythemia vera Social History household members: none Smoking Status: Never smoker alcohol intake: never Meds Home Medications and Allergies Home Medications Medication Instructions Recorded Confirmed Type [CRANBERRY] 1 cap PO QDAY ##0 01/27/17 07/01/24 History aspirin 81 mg tablet 81 mg PO DAILY 03/31/24 07/01/24 History hydroxyurea 500 mg capsule 1,000 mg PO DAILY 03/31/24 07/01/24 History lisinopril 20 mg tablet 20 mg PO BID hypertension 03/31/24 07/01/24 History lorazepam 0.5 mg tablet 0.25 mg PO BEDTIME 03/31/24 07/01/24 History simvastatin 20 mg tablet 20 mg PO ONCE PM 03/31/24 07/01/24 History Allergies Allergy/AdvReac Type Severity Reaction Status Date / Time oxycodone [OXYCODONE] AdvReac Intermediate Irritable Verified 07/01/24 10:45 Review of Systems Review of Systems Narrative: All else reviewed and otherwise unremarkable except as noted in the history and physical. Exam Vital Signs (past 8 hours): - 07/01/24 10:41 07/01/24 11:02 07/01/24 11:05 Temperature 97.2 F L Pulse Rate 107 H 100 H Respiratory Rate 22 Blood Pressure 133/76 155/68 H Blood Pressure [Left Arm] Pulse Oximetry 99 Oxygen Delivery Method Room Air Oxygen Flow Rate 07/01/24 11:30 07/01/24 11:56 07/01/24 11:56 Temperature Pulse Rate 96 H 60 Respiratory Rate 17 Blood Pressure 76/42 L Blood Pressure [Left Arm] Pulse Oximetry 98 94 Oxygen Delivery Method Oxygen Flow Rate 07/01/24 11:57 07/01/24 11:57 07/01/24 12:00 Temperature Pulse Rate 71 85 Respiratory Rate 24 29 H Blood Pressure 82/47 L Blood Pressure [Left Arm] Pulse Oximetry 96 98 Oxygen Delivery Method Oxygen Flow Rate 07/01/24 12:00 07/01/24 12:05 07/01/24 12:05 Temperature Pulse Rate 83 Respiratory Rate 24 Blood Pressure 88/52 L 103/51 L Blood Pressure [Left Arm] Pulse Oximetry 96 Oxygen Delivery Method Oxygen Flow Rate 07/01/24 12:10 07/01/24 12:10 07/01/24 12:15 Temperature Pulse Rate 80 Respiratory Rate 16 Blood Pressure 113/55 L 116/57 L Blood Pressure [Left Arm] Pulse Oximetry 98 Oxygen Delivery Method Oxygen Flow Rate 07/01/24 12:15 07/01/24 12:20 07/01/24 12:20 Temperature Pulse Rate 80 85 Respiratory Rate 16 16 Blood Pressure 130/60 Blood Pressure [Left Arm] Pulse Oximetry 99 100 Oxygen Delivery Method Oxygen Flow Rate 07/01/24 12:25 07/01/24 12:25 07/01/24 12:30 Temperature Pulse Rate 89 84 Respiratory Rate 31 H 22 Blood Pressure 125/61 Blood Pressure [Left Arm] Pulse Oximetry 100 100 Oxygen Delivery Method Oxygen Flow Rate 07/01/24 12:30 07/01/24 12:35 07/01/24 12:35 Temperature Pulse Rate 81 Respiratory Rate 22 Blood Pressure 132/78 126/73 Blood Pressure [Left Arm] Pulse Oximetry 99 Oxygen Delivery Method Oxygen Flow Rate 07/01/24 12:40 12/18/24 12:40 07/01/24 12:45 Temperature Pulse Rate 78 81 Respiratory Rate 16 24 Blood Pressure 129/60 Blood Pressure [Left Arm] Pulse Oximetry 100 99 Oxygen Delivery Method Oxygen Flow Rate 07/01/24 12:45 07/01/24 13:00 07/01/24 13:00 Temperature Pulse Rate 84 Respiratory Rate 23 Blood Pressure 125/59 L 144/65 H Blood Pressure [Left Arm] Pulse Oximetry 100 Oxygen Delivery Method Oxygen Flow Rate 07/01/24 13:47 07/01/24 14:00 07/01/24 14:07 Temperature 98.0 F 98.0 F 98.2 F Pulse Rate 90 87 87 Respiratory Rate 18 16 18 Blood Pressure 141/62 H 151/70 H Blood Pressure [Left Arm] 151/70 H Pulse Oximetry 96 Oxygen Delivery Method Room Air Oxygen Flow Rate 07/01/24 14:40 07/01/24 16:30 Temperature 96.1 F L 97.3 F L Pulse Rate 102 H 102 H Respiratory Rate 20 18 Blood Pressure 141/69 H 144/78 H Blood Pressure [Left Arm] Pulse Oximetry 96 Oxygen Delivery Method Oxygen Flow Rate 0 Oxygen Delivery Method Room Air Oxygen Flow Rate 0 Narrative Exam Narrative: NAD, alert and oriented, fluent speech, calm. Normocephalic skull, EOMI, anicteric sclera, symmetric pupils. Oropharynx unremarkable, no droop. Neck supple, midline trachea, no adenopathy. Lungs clear, normal rate and effort. Heart regular, no murmur gallop or rub. Abdomen is soft, non distended and non tender. Extremities are free of edema. Skin is free of rash or lesions. Joints are not swollen or deformed. Judgment appears to be normal. Objective Labs 07/01/24 13:02 07/01/24 11:09 Labs: Laboratory Results - last 24 hr 07/01/24 07/01/24 11:09 13:02 WBC 13.5 H 12.1 H RBC 4.42 3.45 L Hgb 12.4 9.8 L Hct 40.7 31.6 L MCV 92.2 91.4 MCH 28.2 28.5 MCHC 30.5 31.1 RDW 19.1 H 19.0 H Plt Count 556 H 352 Neut % (Auto) 85.2 H 85.9 H Lymph % (Auto) 11.3 L 11.0 L Tripp % (Auto) 1.7 L 1.9 L Eos % (Auto) 1.3 L 1.0 L Baso % (Auto) 0.5 0.2 Neut # (Auto) 57898 H 08417 H Lymph # (Auto) 1500 1300 Tripp # (Auto) 200 200 Eos # (Auto) 200 100 Baso # (Auto) 100 0 PT 12.3 INR 1.1 APTT 38 H Sodium 136 L Potassium 4.1 Chloride 107 Carbon Dioxide 22 BUN 18 H Creatinine 0.70 Estimated GFR > 60 BUN/Creatinine Ratio 25.7 H Glucose 118 H Calcium 9.9 Total Bilirubin 0.9 AST 34 ALT 24 Alkaline Phosphatase 119 Total Protein 7.6 Albumin 4.7 Globulin 2.9 Albumin/Globulin Ratio 1.6 Blood Type O Positive Antibody Screen Negative Crossmatch See Detail Assessment & Plan Assessment & Plan narrative: 1. Rectal bleeding, present on admission and active. 2. Acute blood loss anemia, present on admission and active. 2. Polycytemia Vera, present on admission and active. 3. Hypertension, present on admission and active. 4. Recurrent UTI / Hx of ureteral stone, present on admission and active. 5. Anxiety / Insomnia, present on admission and active. 6. HLD, present on admission and active. 7. H/o PPM placement, present on admission and active. PLAN: -monitor HH and blood if needed. -surgery consulted for colonoscopy tomorrow. DNR/DNI confirmed today. Time-Based Coding :: 35 minspent with patient and on the chart (including review of chart, obtaining history, exam, reviewing outside data, placing orders, documenting exam and treatment plan, and counseling patient) on 07/01 Quality MIPS - Admit I confirm the patient?s Advance Care Plan is present, Code status is documented, Surrogate decision maker is in patient?s record [If Yes, STOP here]: Yes MIPS - Meds 'Current medications' to include all prescriptions, [id number] products, herbals, cannabis/cannabidiol products, and vitamin/mineral/dietary (nutritional) supplements. I have utilized all available resources to obtain, update, or review the patient?s current medications. [If Yes, STOP here]: Yes
[2024-07-01 21:36] LABS: Hematocrit 35.9 % (36-46); Hemoglobin 11.1 g/dL (12.0-16.0)
[2024-07-02] VITALS (13 sets, daily range): BP systolic 95–156; BP diastolic 43–80; PULSE 84–588; RESP 11–23; TEMP 36.3–37.1; O2SAT 97–100
[2024-07-02] MEDS: DEXTROSE 5%-0.9% NS 1,000 ML 100 ML IV ×2 (02:04→12:10)
[2024-07-02 05:36] LABS: Add Manual Diff / Slide Review NO; Basophils Absolute Auto 0 /uL (0-100); Basophils Percent Auto 0.2 % (0-2); Eosinophils Absolute Auto 200 /uL (0-450); Eosinophils Percent Auto 2.1 % (2-4); Hematocrit 31.4 % (36-46); Lymphocytes Absolute Auto 2400 /uL (1100-4500); Lymphocytes Percent Auto 22.4 % (25-40); Mean Corpuscular Hemoglobin 28.3 PG (26-34); Mean Corpuscular Volume 88.4 fL (80-100); Monocytes Absolute Auto 300 /uL (0-900); Monocytes Percent Auto 2.5 % (3-14); Neutrophils Absolute Auto 7700 /uL (1500-7000); Neutrophils Percent Auto 72.8 % (50-75); Platelet Count 402 X10^3/uL (150-400); Red Blood Cell Count 3.55 X10^6/uL (4.0-5.2); Red Cell Distribution Width 19.2 % (11.6-14.8); White Blood Cell Count 10.6 X10^3/uL (4.5-11.0)
[2024-07-02 05:51] LABS: Blood Urea Nitrogen 10 mg/dL (7-17); Calcium 8.8 mg/dL (8.4-10.2); Carbon Dioxide 21 mmol/L (22-32); Chloride 111 mmol/L (98-107); Estimated Glomerular Filt Rate > 60 mL/min (>60); Glucose 117 mg/dL (80-110); HEMOLYSIS < 15 (0-50); Potassium 3.7 mmol/L (3.4-5.1); Sodium 139 mmol/L (137-145)
--- NOTE | 2024-07-02 07:07 | PC.NURSE ---
Patient completed goLYTELY before midnight. Has had multiple watery stools. Reported the last one was bloody- bright red watery stool.
--- NOTE | 2024-07-02 09:43 | P.PN_ITS ---
Subjective Subjective Interval history: Summary: She was admitted with GI bleeding. She has a history of the same which related to hemorrhoids. Subjective: She passed some bloody material this morning and this made her little anxious. No abdominal pain, or nausea. A repeat hemoglobin is 9.5 compared to 10.0 at 4:55 a.m.. Exam Vital Signs (past 8 hours): - 07/02/24 04:00 07/02/24 08:00 Temperature 98.6 F 97.6 F Pulse Rate 92 H 99 H Respiratory Rate 18 18 Blood Pressure 147/61 H 137/56 L Pulse Oximetry 97 99 Oxygen Flow Rate 0 Oxygen Delivery Method Room Air Oxygen Flow Rate 0 Narrative Exam Narrative: NAD, alert and oriented. Fluent speech. Lungs are clear, normal rate and effort. Heart is regular, no murmur gallop or rub. Abdomen is soft, non distended. Extremities are free of edema. Objective Labs 07/02/24 11:14 07/02/24 04:55 Labs: Laboratory Results - last 24 hr 07/01/24 07/01/24 07/01/24 11:09 13:02 21:29 WBC 13.5 H 12.1 H RBC 4.42 3.45 L Hgb 12.4 9.8 L 11.1 L Hct 40.7 31.6 L 35.9 L MCV 92.2 91.4 MCH 28.2 28.5 MCHC 30.5 31.1 RDW 19.1 H 19.0 H Plt Count 556 H 352 Neut % (Auto) 85.2 H 85.9 H Lymph % (Auto) 11.3 L 11.0 L Ashley % (Auto) 1.7 L 1.9 L Eos % (Auto) 1.3 L 1.0 L Baso % (Auto) 0.5 0.2 Neut # (Auto) 45197 H 55818 H Lymph # (Auto) 1500 1300 Ashley # (Auto) 200 200 Eos # (Auto) 200 100 Baso # (Auto) 100 0 PT 12.3 INR 1.1 APTT 38 H Sodium 136 L Potassium 4.1 Chloride 107 Carbon Dioxide 22 BUN 18 H Creatinine 0.70 Estimated GFR > 60 BUN/Creatinine Ratio 25.7 H Glucose 118 H Calcium 9.9 Total Bilirubin 0.9 AST 34 ALT 24 Alkaline Phosphatase 119 Total Protein 7.6 Albumin 4.7 Globulin 2.9 Albumin/Globulin Ratio 1.6 Blood Type O Positive Antibody Screen Negative Crossmatch See Detail 07/02/24 04:55 WBC 10.6 RBC 3.55 L Hgb 10.0 L Hct 31.4 L MCV 88.4 D MCH 28.3 MCHC 32.0 RDW 19.2 H Plt Count 402 H Neut % (Auto) 72.8 Lymph % (Auto) 22.4 L Ashley % (Auto) 2.5 L Eos % (Auto) 2.1 Baso % (Auto) 0.2 Neut # (Auto) 7700 H Lymph # (Auto) 2400 Ashley # (Auto) 300 Eos # (Auto) 200 Baso # (Auto) 0 PT INR APTT Sodium 139 Potassium 3.7 Chloride 111 H Carbon Dioxide 21 L BUN 10 Creatinine 0.50 L Estimated GFR > 60 BUN/Creatinine Ratio 20.0 Glucose 117 H Calcium 8.8 Total Bilirubin AST ALT Alkaline Phosphatase Total Protein Albumin Globulin Albumin/Globulin Ratio Blood Type Antibody Screen Crossmatch [facility] Medical History HTN (hypertension) GERD (gastroesophageal reflux disease) Acquired polycythemia vera Social History household members: none Smoking Status: Never smoker alcohol intake: never Assessment & Plan Assessment & Plan narrative: 1. Rectal bleeding, present on admission and active. 2. Acute blood loss anemia, present on admission and active. 2. Polycytemia Vera, present on admission and active. 3. Hypertension, present on admission and active. 4. Recurrent UTI / Hx of ureteral stone, present on admission and active. 5. Anxiety / Insomnia, present on admission and active. 6. HLD, present on admission and active. 7. H/o PPM placement, present on admission and active. PLAN: -monitor HH and blood if needed. Recheck HH Q6 -surgery consulted for colonoscopy today. CANDELARIA: 07/03. Time-Based Coding :: [TOTAL MINUTES] spent with patient and on the chart (including review of chart, obtaining history, exam, reviewing outside data, placing orders, documenting exam and treatment plan, and counseling patient) on [DATE].
[2024-07-02] MEDS: PANTOPRAZOLE 40 MG VIAL IV ×2 (09:57→20:06)
--- NOTE | 2024-07-02 10:27 | CM.DANOTE ---
Patient is an 84 yo female, resident of [place], admitted INPT Status on 07/01/24 with suspected GI bleed. PCP: [facility] Payer: MANDO/Tere Per , pt with recent admission in Mar 2024 for similar and discharged home after colonoscopy showed no findings except for hemorrhoids and diverticulitis. Per Surgeon Consult, recommending EGD and colonoscopy this afternoon and pt tolerated bowel prep and still some blood in her stool this morning. 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 Patient has a strong support network of friends and family. Patient has three adult children, her oldest daughter Risa Ball is her DPOA P [phone], also a nurse, she lives in [place]. Her other Dtr lives on the [facility] and her son lives in [place]. Pt starting to acknowledge that since her spouse 2 years ago their home and one acre property in [facility] [place] [facility] is probably getting too large for her needs and she is beginning to consider discussion with her children about her LTC plans in the near future. Pt denies any hx for herself of HH or SNF but utilized these services for her prior to his . Pt preference is to d/c home via friend POV pending scope results and pt feeling somewhat anxious about what health issues might be discovered during scope and she currently does not anticipate any needs at d/c at this time. Plan: SW to follow closely for EGD and colonoscopy results from scopes this afternoon to confirm safe d/c home via friend POV and any further identified discharge planning needs. LIZZY Reddy Discharge Planning/Care Management CM Discharge Assessment Start: 07/02/24 10:25 Freq: Status: Active Protocol: Document 07/02/24 10:25 BF (Rec: 07/02/24 10:27 BF [id number]) Discharge Planning Assessment Assigned Senior Packaging Engineer LIZZY Maravilla DPXENIA/Assigned Designee Name Dtr Risa in [place] Contact Information [phone] Advance Directives? Yes Advance Directives on File No History Provided By Patient,Medical Record Has Patient been admitted in last 30 No days? Comment Last admit in Mar 2024 for similar a couple months ago and discharged home Prior Living Arrangements House Household Members none Type of transporation used prior to Drives own vehicle admit Independent with ADL's Yes Is patient alert and oriented? Yes Caregiver for Another No Barriers to Discharge No Discharge Plan Home Transportation Arrangement Friend Additional Comment Pending EGD and colonoscopy results Whiteboard Updated in Patient Room with Yes name and ext. # of Senior Packaging Engineer Review Status In Process Please Provide Date Initial DC 07/02/24 Assessment Was Performed Next Review Type Continued Stay Review
[2024-07-02 11:21] LABS: Hematocrit 30.6 % (36-46); Hemoglobin 9.5 g/dL (12.0-16.0)
[2024-07-02] MEDS: SODIUM CHLORIDE 0.9% 500 ML 1000 ML IV ×2 (11:24→14:20)
[2024-07-02 14:23] LABS: Hemoglobin 8.4 g/dL (12.0-16.0)
--- NOTE | 2024-07-02 16:42 | SUR.HOLD ---
Report received From MAGALIS Khan. Pt transferred from 216 to pre-op holding. Pt stood to transfer from bed to stretcher without difficulty, no dizziness. VSS on RA, see flowsheet. PIV site cleaned and dressing changed.
--- NOTE | 2024-07-02 16:59 | PC.NURSE ---
Patient with x5 liquid red stool today. She has a bout of dizziness and drop in BP 90's /50's this a.m. and H/H redrawn as well as 500 CC NS bolus administered. BP improved 130's/50's and then she had x2 more bright red stool episodes which afterward said she felt weak and dizzy. MD notified and patient received 2nd 500 cc NS bolus, and H/H redrawn. At approximately 1600 patient is taken to preop area via bed. She is slightly tearful and anxious expresses worry that she would have to go home to night and that she hopes this issue can be resolved and she wont have to go through this again. She is easily reassured that she will ve recovered and monitoried overnight until she is stable and cleared medically for discharge home.
--- NOTE | 2024-07-02 18:27 | PM.OP.EC ---
Operative Date/Time/Diagnoses Date of procedure: 07/02/24 Time of procedure: 18:27 Pre-op diagnosis: Acute GI bleed requiring transfusion Post-op diagnosis: same (Bleeding sigmoid diverticulosis) Procedure & Clinicians Study performed: 1. EGD 2. Colonoscopy with control of hemorrhage by injection 3 mL of epinephrine 1:100,000 and a suspicious sigmoid diverticulum Same procedure as scheduled: Yes Indications: Acute blood loss Surgeon: Romeo Russo Procedure Notes SCOAP/Timeout: Performed Procedure in detail: Time-out was performed. Mac was induced. Patient was placed in left lateral decubitus position. Bite block was placed a gastroscope was advanced through the mouth into the 2nd portion of the duodenal. There was no blood in the duodenal stomach or esophagus. Retroflexed view did not show a hiatal hernia. There was no varices. No ulcers. Z-line was normal in appearance at 40 cm from the incisors. The perineum was inspected without any gross abnormality. There was blood in the rectal vault, but not bleeding hemorrhoids. Lubricated pediatric colonoscope was inserted and advanced to the cecum. The terminal ileum was intubated and there was no blood in the terminal ileum. The colonoscope was withdrawn slowly inspecting the circumference of the colon. There was hematin staining throughout the entire colon without signs of active bleeding. Very small polyps may have been missed, prep quality was adequate. Diverticulosis was most extensive in the sigmoid colon. There was 1 diverticulum most proximal 2 clot with fibrin contained within the diverticulum. A needle was introduced at 3 different angles into the diverticulum injecting 1 mL of 1 in 100,000 epinephrine 3 times within the diverticulum. There was some blanching of the mucosa. After copious irrigation of the colon, there was no further evidence of bleeding. Retroflexed view of the rectum showed small, non prolapsed nonbleeding internal hemorrhoids. There were no rectal varices. The scope was withdrawn the patient was taken to PACU in good condition. Scope withdrawal time: 35 Findings: diverticulosis (with stigmata of recent bleeding) Specimen(s): none sent Complications: none Impression: Bleeding diverticulosis. Post-procedure Recommendations: High fiber diet Plan for aftercare: Returned to ICU. If patient has continued bleeding, recommend tagged red blood cell scan followed by angio embolization. Follow up: as needed Disposition: PACU
--- NOTE | 2024-07-02 19:10 | PC.NURSE ---
pt returned at 1900, from PACU. She is able to stand and walk from [facility]. VSS,Post op VS initiated.
[2024-07-02] MEDS: ACETAMINOPHEN 325 MG TABLET 650 MG PO (22:36)
[2024-07-03] VITALS (8 sets, daily range): BP systolic 128–171; BP diastolic 48–72; PULSE 91–103; RESP 16–20; TEMP 35.7–36.3; O2SAT 96–100
[2024-07-03 04:34] LABS: Add Manual Diff / Slide Review NO; Basophils Absolute Auto 100 /uL (0-100); Basophils Percent Auto 0.6 % (0-2); Eosinophils Absolute Auto 300 /uL (0-450); Eosinophils Percent Auto 2.3 % (2-4); Hematocrit 22.4 % (36-46); Lymphocytes Absolute Auto 2600 /uL (1100-4500); Lymphocytes Percent Auto 22.5 % (25-40); Mean Corpuscular HGB Conc 31.3 % (30-36); Mean Corpuscular Hemoglobin 28.1 PG (26-34); Mean Corpuscular Volume 89.9 fL (80-100); Monocytes Absolute Auto 400 /uL (0-900); Monocytes Percent Auto 3.1 % (3-14); Neutrophils Absolute Auto 8300 /uL (1500-7000); Neutrophils Percent Auto 71.5 % (50-75); Platelet Count 363 X10^3/uL (150-400); Red Blood Cell Count 2.49 X10^6/uL (4.0-5.2); Red Cell Distribution Width 19.5 % (11.6-14.8); White Blood Cell Count 11.6 X10^3/uL (4.5-11.0)
[2024-07-03 04:51] LABS: BUN Creatinine Ratio 15.3 (6-22); Blood Urea Nitrogen 9 mg/dL (7-17); Calcium 8.5 mg/dL (8.4-10.2); Carbon Dioxide 19 mmol/L (22-32); Chloride 111 mmol/L (98-107); Estimated Glomerular Filt Rate > 60 mL/min (>60); Glucose 96 mg/dL (80-110); HEMOLYSIS 16 (0-50); Potassium 3.5 mmol/L (3.4-5.1); Sodium 134 mmol/L (137-145)
[2024-07-03] MEDS: PANTOPRAZOLE 40 MG VIAL IV ×2 (08:49→21:19)
--- NOTE | 2024-07-03 08:52 | PM.PN.1 ---
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 Recent bleed with colonoscopy and treatment of internal hemorrhoids several months ago. Colonoscopy yesterday revealed diverticulosis and probable diverticular bleed. This likely was resolved, but 1 diverticulum was injected. No bleeding overnight. S: She feels a little bit weak but otherwise doing fine. No dyspnea or chest pain. Hemoglobin is 7. She agrees to 1 unit of blood and to be observed for another 24 hours to track her hemoglobin and bowel movements. History of recurrent UTI, dysuria this morning. Completed last week. Exam Vital Signs (past 8 hours): - 07/03/24 04:45 07/03/24 08:00 Temperature 97.0 F L 96.3 F L Pulse Rate 91 H 103 H Respiratory Rate 20 16 Blood Pressure 128/67 171/68 H Pulse Oximetry 100 99 Oxygen Flow Rate 0 0 Oxygen Delivery Method Room Air Oxygen Flow Rate 0 Narrative Exam Narrative: NAD, alert and oriented. Fluent speech. Lungs are clear, normal rate and effort. Heart is regular, no murmur gallop or rub. Abdomen is soft, non distended. Extremities are free of edema. Objective Labs 07/03/24 04:24 07/03/24 04:24 Labs: Laboratory Results - last 24 hr 07/02/24 07/02/24 07/03/24 11:14 14:17 04:24 WBC 11.6 H RBC 2.49 L Hgb 9.5 L 8.4 L 7.0 L Hct 30.6 L 27.0 L 22.4 L MCV 89.9 MCH 28.1 MCHC 31.3 RDW 19.5 H Plt Count 363 Neut % (Auto) 71.5 Lymph % (Auto) 22.5 L [place] % (Auto) 3.1 Eos % (Auto) 2.3 Baso % (Auto) 0.6 Neut # (Auto) 8300 H Lymph # (Auto) 2600 [place] # (Auto) 400 Eos # (Auto) 300 Baso # (Auto) 100 Sodium 134 L Potassium 3.5 Chloride 111 H Carbon Dioxide 19 L BUN 9 Creatinine 0.59 Estimated GFR > 60 BUN/Creatinine Ratio 15.3 Glucose 96 Calcium 8.5 PFSH Medical History HTN (hypertension) GERD (gastroesophageal reflux disease) Acquired polycythemia vera Social History household members: none Smoking Status: Never smoker alcohol intake: never Assessment & Plan Assessment & Plan narrative: 1. Rectal bleeding, present on admission and resolved. Likely diverticular. 2. Acute blood loss anemia, present on admission and active. Hemoglobin 7.0 2. Polycytemia Vera, present on admission and active. 3. Hypertension, present on admission and active. 4. Recurrent UTI / Hx of ureteral stone, new dysuria. 5. Anxiety / Insomnia, present on admission and active. 6. HLD, present on admission and active. 7. H/o PPM placement, present on admission and active. PLAN: -monitor HH and 1 unit of packed red blood cells today. -monitor for an additional night for recurrent rectal bleeding and stability of hemoglobin. -cephalexin 500 q.i.d., urinalysis with culture sent. CANDELARIA: 07/04. DNR/DNI Time-Based Coding :: [TOTAL MINUTES] spent with patient and on the chart (including review of chart, obtaining history, exam, reviewing outside data, placing orders, documenting exam and treatment plan, and counseling patient) on [DATE].
--- NOTE | 2024-07-03 09:27 | PC.NURSE ---
Addendum entered by Tosha Jc R.N. 07/03/24 13:56: Patients blood done at 1325. She tolerated this well and her vss. Addendum entered by Tosha Jc R.N. 07/03/24 10:24: Patients PRBCs are infusing and she it tolerating this well. She is independent in the room and denies any dizziness or issues with ambulating. She did complain of pain upon urination, states that she has chronic uti, is aware amd ordered patient oral antibiotics. Her VSS. Original Note: Assess- Patient is alert and oriented x4, she was teary eyed this morning but felt better after conversing with the nurse and doctor. She is going to get another unit of blood and is agreeable to this. Patient will most likely go home tomorrow. She denies any dizziness or syncopal episodes this morning and tolerated her breakfast.
[2024-07-03 10:15] LABS: Appearance Urine UA SL CLOUDY; Bilirubin Urine UA NEGATIVE (NEGATIVE); Color Urine UA YELLOW; Glucose Urine UA NEGATIVE (Negative); Ketones Urine UA NEGATIVE (NEGATIVE); Leukocyte Esterase Urine UA 3+ (NEGATIVE); Nitrite Urine UA NEGATIVE (Negative); Occult Blood Urine UA 1+ (Negative); Protein Urine UA NEGATIVE (Negative); Specific Gravity Urine UA <=1.005 (1.000-1.035); Urine Volume 10mL (spun); Urobilinogen Urine UA 0.2 E.U./dL (0.2)
[2024-07-03 10:18] LABS: Bacteria Urine Few (2-10); Culture Indicated Urine Specimen Cultured; RBC Urine 1-5/HPF (0-5/HPF); Squamous Epithelial Cell Urine n (0-5/HPF); WBC Urine 10-30/HPF (0-5/HPF)
[2024-07-03] MEDS: cephALEXin 250 MG CAPSULE 500 MG PO ×4 (10:47→21:19)
[2024-07-03] MEDS: POTASSIUM CHLORIDE 20 MEQ TAB PO (10:50)
--- NOTE | 2024-07-03 13:57 | CM.DPC ---
DCP Continued: Reviewed EMR and team rounds for pt?s medical status. Per hospitalist, pt will need one more night of monitoring H/H and will receive 1 unit of blood. No other discharge needs identified at this time. Plan: Anticipating discharge home with family when medically cleared. CM Team will continue to follow for coordination of discharge plans. VIKKI Henderson
--- NOTE | 2024-07-03 14:59 | P.PN_ITS ---
Subjective Subjective Date Patient Seen: 07/03/24 Time Patient Seen: 14:59 Interval history: Patient is walking in the [place]. No further bleeding. No lightheadedness. Feels well overall. Was transfused today. Exam Vital Signs (past 8 hours): - 07/03/24 08:00 07/03/24 09:58 07/03/24 10:13 Temperature 96.3 F L 96.5 F L 97.0 F L Pulse Rate 103 H 97 H 96 H Respiratory Rate 16 18 18 Blood Pressure 171/68 H 152/48 H 138/56 L Pulse Oximetry 99 Oxygen Flow Rate 0 07/03/24 13:25 Temperature 97.0 F L Pulse Rate 100 H Respiratory Rate 18 Blood Pressure 148/62 H Pulse Oximetry Oxygen Flow Rate Oxygen Delivery Method Room Air Oxygen Flow Rate 0 Narrative Exam Narrative: Gen: NAD, ambulating, appears well HEENT: Sclera are anicteric, head is normocephalic and atraumatic, trachea is midline. CV: RRR, no JVD Resp: clear to auscultation bilaterally, equal chest wall movement bilaterally Abd: soft, nontender, normoactive bowel sounds Ext: no edema, full range of motion Neuro: Cranial nerves II-XII grossly intact, no focal deficits Skin: No erythema or ecchymosis Objective Labs 07/03/24 04:24 07/03/24 04:24 Labs: Laboratory Results - last 24 hr 07/01/24 07/03/24 07/03/24 11:09 04:24 09:50 WBC 11.6 H RBC 2.49 L Hgb 7.0 L Hct 22.4 L MCV 89.9 MCH 28.1 MCHC 31.3 RDW 19.5 H Plt Count 363 Neut % (Auto) 71.5 Lymph % (Auto) 22.5 L Swisher % (Auto) 3.1 Eos % (Auto) 2.3 Baso % (Auto) 0.6 Neut # (Auto) 8300 H Lymph # (Auto) 2600 Swisher # (Auto) 400 Eos # (Auto) 300 Baso # (Auto) 100 Sodium 134 L Potassium 3.5 Chloride 111 H Carbon Dioxide 19 L BUN 9 Creatinine 0.59 Estimated GFR > 60 BUN/Creatinine Ratio 15.3 Glucose 96 Calcium 8.5 Urine Color Yellow Urine Appearance Sl cloudy Urine pH 5.0 Ur Specific [place] <=1.005 Urine Protein Negative Urine Glucose (UA) Negative Urine Ketones Negative Urine Occult Blood 1+ H Urine Nitrate Negative Urine Bilirubin Negative Urine Urobilinogen 0.2 Ur Leukocyte Esterase 3+ H Urine RBC 1-5/hpf Urine WBC 10-30/hpf H Ur Squamous Epith Cells n Urine Bacteria Few (2-10) H Ur Culture Indicated? Specimen cultured Vol Urine Centrifuged 10ml (spun) Blood Type O Positive Antibody Screen Negative Crossmatch See Detail [facility] Medical History HTN (hypertension) GERD (gastroesophageal reflux disease) Acquired polycythemia vera Social History household members: none Smoking Status: Never smoker alcohol intake: never Assessment & Plan Assessment and plan (1) Acute GI bleeding: Status: Acute Assessment & Plan narrative: Likely bleeding sigmoid diverticulosis. Injected yesterday with a good response. If she rebleeds, recommend embolization. Time-Based Coding :: [TOTAL MINUTES] spent with patient and on the chart (including review of chart, obtaining history, exam, reviewing outside data, placing orders, documenting exam and treatment plan, and counseling patient) on [DATE]. PROFEE Charge codes Subsequent inpatient/observation care: 91778
[2024-07-04 02:00] VITALS: BP 141/61; PULSE 91; RESP 16; TEMP 37.1; O2SAT 96
[2024-07-04 05:24] LABS: Hematocrit 25.3 % (36-46); Mean Corpuscular HGB Conc 31.5 % (30-36); Mean Corpuscular Hemoglobin 29.2 PG (26-34); Mean Corpuscular Volume 92.8 fL (80-100); Platelet Count 379 X10^3/uL (150-400); Red Blood Cell Count 2.73 X10^6/uL (4.0-5.2); Red Cell Distribution Width 18.6 % (11.6-14.8); White Blood Cell Count 11.3 X10^3/uL (4.5-11.0)
[2024-07-04 05:36] LABS: Blood Urea Nitrogen 6 mg/dL (7-17); Calcium 8.7 mg/dL (8.4-10.2); Carbon Dioxide 21 mmol/L (22-32); Chloride 111 mmol/L (98-107); Estimated Glomerular Filt Rate > 60 mL/min (>60); Glucose 93 mg/dL (80-110); HEMOLYSIS 22 (0-50); Potassium 3.7 mmol/L (3.4-5.1); Sodium 134 mmol/L (137-145)
[2024-07-04 06:00] VITALS: BP 139/59; PULSE 90; RESP 16; O2SAT 99
[2024-07-04 08:00] VITALS: BP 150/58; PULSE 92; RESP 17; TEMP 36.3; O2SAT 98
[2024-07-04] MEDS: cephALEXin 250 MG CAPSULE 500 MG PO (09:31)
--- NOTE | 2024-07-04 13:28 | PC.NURSE ---
D/c instructions reviewed with pt. Hard copy of Rx for cephalexin given to patient. IV and tele removed. Pt dressed, confirmed she had all of her belongings. Pt exited via w/c with ACTIVITY MANAGER and daughter to private vehicle.
--- NOTE | 2024-07-04 13:46 | CM.DPNOTE ---
DC Note Discharge home w/supportive friends and family. IMM provided. No discharge needs identified by this CM team. KATE
--- NOTE | 2024-07-04 19:42 | P.DS_ITS ---
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 She was currently living alone, having been about 2 years ago. She presents now with 3 episodes of bright red blood per rectum which started this morning. No abdominal pain, or recent nausea, or vomiting. She had a similar episode several months ago and had colonoscopy revealing hemorrhoids. Her stools have recently been soft. She denies any recent fevers, or chills. She does not have a history of polyps or diverticular bleed in the past. Her previous episode involving hemorrhoids was painless, and these were likely internal. She was given a unit of blood in the emergency department, her vital signs were otherwise stable. She was seen by General surgery who recommended a prep for colonoscopy in the morning. Level care: We discussed her POLST and level of care wishes. She was DNR and would not want to be on a ventilator. She was fine with blood products, fluid resuscitation and transient pressors in the ICU for blood pressure support. Discharge Providers Provider Date of admission: 07/01/24 14:20 Discharge Date: 07/04/24 Primary care physician: Arthur Bailon MD Consults: 07/01/24 16:05 Consult to General Surgery Routine Comment: Consulting Provider: Romeo Russo Reason for consultation: gi bleed Has provider been notified: Yes Discharge provider: Danelle Mary MD Summary Hospital Course Discharge Diagnosis: 1. Lower GI bleed, secondary to diverticular bleeding, resolved 2. Acute blood loss anemia, improved 3. Polycythemia vera, chronic, stable 4. Hypertension, chronic, stable 5. Recurrent UTI, history of ureteral stone 6. Anxiety/insomnia, chronic 7. Hyperlipidemia 8. History of permanent pacemaker placement Hospital Course: Patient presented to the emergency department with acute onset of lower GI bleeding. She received 1 unit of blood in the emergency department and General surgery consulted. Recommendation was to prep for a colonoscopy. EGD and colonoscopy were performed on July 02. EGD was essentially unremarkable and revealed no etiology for bleeding. Colonoscopy showed a suspicious sigmoid diverticulum which was injected with epinephrine. Recommendations were for a high-fiber diet. Hemoglobin dropped to 7.0 on July 03 and she received 1 additional unit of blood. She also developed recurrent dysuria. She was placed on Keflex. On the date of discharge, patient had no recurrent rectal bleeding. She was feeling well. She was tolerating a diet. She was discharged in stable condition. Urine culture has grown pansensitive E coli. She was sent home with 7 additional doses of Keflex to complete a 3 day course of treatment. This should be adequate for treating her current infection. She was given additional instructions to help reduce risk for future UTIs. She is discharged in stable condition. Status at Discharge Cognitive/behavioral status at discharge: at baseline, oriented Functional status at discharge: independent ambulation Overall status at discharge: patient is progressing back to baseline Time Spent with Patient Time spent: Greater than 30 minutes Exam Vital Signs (past 8 hours): Oxygen Delivery Method Room Air Oxygen Flow Rate 0 Narrative Exam Narrative: GEN: Very pleasant elderly female, Alert and oriented x 3, NAD HEENT:NC, Face symmetric CHEST: Respiratory excursions symmetric, CTAB CV: RRR, no M/R/G ABD: Soft, NT/ND, BT present in all 4 quadrants, no organomegaly or masses EXTR: warm, well perfused, no C/C/E SKIN: warm and dry, no rash NEURO: Alert and oriented x 3, nonfocal Objective Labs 07/04/24 05:20 07/04/24 05:20 Labs: Laboratory Results - last 24 hr 07/04/24 05:20 WBC 11.3 H RBC 2.73 L Hgb 8.0 L Hct 25.3 L MCV 92.8 MCH 29.2 MCHC 31.5 RDW 18.6 H Plt Count 379 Sodium 134 L Potassium 3.7 Chloride 111 H Carbon Dioxide 21 L BUN 6 L Creatinine 0.60 Estimated GFR > 60 BUN/Creatinine Ratio 10.0 Glucose 93 Calcium 8.7 PFSH Medical History HTN (hypertension) GERD (gastroesophageal reflux disease) Acquired polycythemia vera Social History household members: none Smoking Status: Never smoker alcohol intake: never Discharge Plan Discharge Plan Patient Disposition: Home Provider Discharge Comment: 1) You have diverticulosis and had evidence of bleeding from one of the diverticula. This was treated. 2) Eat a high fiber diet to reduce the risk of this happening again. Add benefiber daily. Eat oatmeal w/ground flax as one way to increase your fiber intake. 3) I recommend taking Azo (over the counter supplement) to reduce your risk of having recurrent bladder infections. 4) Stay hydrated, wipe from front to back and urinate every few hours to reduce your risk of recurrent bladder infections 5) Consider an evaluation by a survey workers supervisor for other reasons for recurring bladder infections (being post-menopausal, having incomplete bladder emptying, etc.) 6) Please follow-up with your primary care provider for results of your urine culture (call their office on Saturday - if you cannot get results from their office, please call the hospital and ask for the inpatient unit for further assistance). Discharge orders & Medications Prescriptions: New cephalexin 250 mg Capsule 500 mg PO QID Qty: 7 0RF Continued [CRANBERRY] 1 cap PO QDAY Qty: 0 hydroxyurea 500 mg capsule 1,000 mg PO DAILY Rx Instructions: pt takes 1,000 mg everyday once a day except which she takes 1,500 mg lisinopril 20 mg tablet 20 mg PO BID lorazepam 0.5 mg tablet 0.25 mg PO BEDTIME simvastatin 20 mg tablet 20 mg PO ONCE PM aspirin 81 mg Tablet 81 mg PO DAILY Follow up/Referrals: Arthur Bailon MD [Primary Care Provider] - Discharge Health Status Multidrug resistant organism: No MDRO Diet/Activity/Treatments Diet: Diet as Tolerated Visit Report/Discharge Packet Instructions: High-Fiber Diet, DI for Urinary Tract Infection (UTI), DI for Gastrointestinal Bleeding, DI for Diverticulosis Stand Alone Forms: Patient Portal/API, Stroke Signs & Symptoms Discharge Data Primary Care Provider: Arthur Bailon
== END 2024-07-04 13:31 | disposition home or self-care (01) | DRG 378 ==
LOC: ED 13:39 → AC 14:21
PROVIDERS: Pharmacist Pharmacist Clinician (PhC)/ Clinical Pharmacy Specialist; Surgery; Admitting Provider Hospitalist; Emergency Provider Emergency Medicine; PCP Surgery; Referring Provider Emergency Medicine; Visit Provider Hospitalist
PROC: 0DJ08ZZ Inspection of Upper Intestinal Tract, Via Natural or Artificial Opening Endoscopic (ICD-10-PCS; principal; 2024-07-02 16:45)
PROC: 0DJD8ZZ Inspection of Lower Intestinal Tract, Via Natural or Artificial Opening Endoscopic (ICD-10-PCS; CPT 45378; 2024-07-02 16:45)
DX: K57.31 Diverticulosis of large intestine without perforation or abscess with bleeding (principal); D62 Acute posthemorrhagic anemia; N39.0 Urinary tract infection, site not specified; D45 Polycythemia vera; I10 Essential (primary) hypertension; F41.9 Anxiety disorder, unspecified; G47.00 Insomnia, unspecified; E78.5 Hyperlipidemia, unspecified; B96.20 Unspecified Escherichia coli [E. coli] as the cause of diseases classified elsewhere; Z87.442 Personal history of urinary calculi; Z66 Do not resuscitate; Z87.440 Personal history of urinary (tract) infections; Z95.0 Presence of cardiac pacemaker
CPT/HCPCS: 36415; 36430; 43235; 45382; 74018; 80048; 80053; 81001; 85014; 85018; 85025; 85027; 85610; 85730; 86850; 86900; 86901; 87077; 87086; 87186; 96374; 99231; 99232; 99284; 99291; P9016; J2470

== ENCOUNTER 2024-10-26 17:39 | Emergency (ER) | payer MEDICARE, OTHER, SELFPAY ==
[2024-07-01 15:00] VITALS: BMI 26.6
[2024-10-26 17:45] VITALS: BP 207/88; PULSE 107; RESP 18; TEMP 36.9; O2SAT 97; BMI 26.3
--- NOTE | 2024-10-26 18:02 | DI.RAD.S_ITS ---
PROCEDURE: XR HAND RT 2V INDICATIONS: dog bite TECHNIQUE: 2 views of the hand(s) acquired. COMPARISON: None. FINDINGS: Bones: No fractures or dislocations. Carpal bones are normally aligned. No suspicious bony lesions. Soft tissues: No suspicious soft tissue calcifications. IMPRESSION: No acute osseous abnormality. If pain persists with conservative management, consider repeat x-ray in 10-14 days or cross-sectional imaging. Dictated by: Michael Cabrera M.D. on 10/26/2024 at 19:02 Approved by: Michael Cabrera M.D. on 10/26/2024 at 19:02
--- NOTE | 2024-10-26 18:03 | DI.RAD.S_ITS ---
PROCEDURE: XR FOREARM RT 2V INDICATIONS: dog bite TECHNIQUE: 2 views of the forearm were acquired. COMPARISON: None. FINDINGS: Bones: No fractures or dislocations. No suspicious bony lesions. Soft tissues: No suspicious soft tissue calcifications or masses. IMPRESSION: No acute osseous abnormality. If pain persists with conservative management, consider repeat x-ray in 10-14 days or cross-sectional imaging. Dictated by: Michael Cabrera M.D. on 10/26/2024 at 19:02 Approved by: Michael Cabrera M.D. on 10/26/2024 at 19:03
[2024-10-26] MEDS: TET,DIPH,PERTUSS(ACELL),VAC/PF 0.5 ML SYRINGE IM (18:53)
--- NOTE | 2024-10-26 19:36 | PC.NURSE ---
I called [facility] in [facility] and let a voicemail for a rx of Amoxicillin-Clav immediate release 875mg-125mg PO q12 hours for 14 days qty of 28.
[2024-10-26] MEDS: AMOXICILLIN/CLAV 875/125 MG 1 TAB PO (19:54)
[2024-10-26 20:03] VITALS: BP 219/98; PULSE 99; RESP 16; O2SAT 100
--- NOTE | 2024-10-27 11:57 | ED_ITS ---
HPI - Animal Bite <Mark Kern PA-C - Last Filed: 10/27/24 12:28> General Chief Complaint: Animal Bite Stated Complaint: Dog bite Time Seen by Provider: 10/26/24 18:01 Source: patient and family Mode of arrival: Ambulatory History of Present Illness HPI narrative: 84-year-old female presents with her daughter status post a dog bite sustained just prior to arrival. Patient was leaning forward, when her daughters puppy bit her right forearm and hand. Dog was not provoked. Puppy is 2 years old and vaccinations are up-to-date. Last Tdap is 2014. Patient endorses pain at the site of the bites. Denies numbness, tingling, weakness. Is able to move all extremities well. Related Data Home Medications Medication Instructions Recorded Confirmed [CRANBERRY] 1 cap PO QDAY ##0 01/27/17 07/01/24 aspirin 81 mg tablet 81 mg PO DAILY 03/31/24 07/01/24 hydroxyurea 500 mg capsule 1,000 mg PO DAILY 03/31/24 07/01/24 lisinopril 20 mg tablet 20 mg PO BID hypertension 03/31/24 07/01/24 lorazepam 0.5 mg tablet 0.25 mg PO BEDTIME 03/31/24 07/01/24 simvastatin 20 mg tablet 20 mg PO ONCE PM 03/31/24 07/01/24 Previous Rx's Medication Instructions Recorded cephalexin 250 mg capsule 500 mg (2 x 250 mg) PO QID #7 caps 07/04/24 Allergies Allergy/AdvReac Type Severity Reaction Status Date / Time oxycodone [OXYCODONE] AdvReac Intermediate Irritable Verified 07/01/24 10:45 Review of Systems <Mark Kern PA-C - Last Filed: 10/27/24 12:28> Constitutional Constitutional: Denies chills, Denies fatigue, Denies fever(s), Denies frequent falls, Denies lethargy and Denies weakness Eyes Eyes: Denies change in vision, Denies eye discharge, Denies irritation and Denies loss of vision ENT Ears, Nose, Mouth, and Throat: Denies change in voice, Denies dizziness, Denies neck pain, Denies sore throat and Denies throat swelling Cardiovascular Cardiovascular: Denies chest pain, Denies irregular heart rhythm, Denies lightheadedness, Denies palpitations, Denies dyspnea, Denies dyspnea on exertion and Denies orthopnea Respiratory Respiratory: Denies cough, Denies dyspnea, Denies dyspnea on exertion and Denies wheezing Gastrointestinal Gastrointestinal: Denies abdominal pain, Denies change in bowel habits, Denies diarrhea, Denies nausea and Denies vomiting Musculoskeletal Musculoskeletal: Denies neck pain and Denies numbness Integumentary/Breasts Skin/Breast: Denies pruritus, Denies erythema, Denies rash and Reports wounds Neurologic Neurologic: Denies behavioral changes, Denies confusion, Denies dizziness, Denies frequent falls, Denies loss of vision, Denies numbness and Denies weakness Psychiatric Psychiatric: Denies anxiety, Denies behavioral changes, Denies confusion, Denies depression, Denies homicidal ideation and Denies suicidal ideation Endocrine Endocrine: Denies fatigue, Denies flushing and Denies palpitations Hematologic/Lymphatic Hematologic/Lymphatic: Denies easy bruising Allergic/Immunologic Allergic/Immunologic: Denies urticaria, Denies throat swelling and Denies wheezing Patient History <Mark Kern PA-C - Last Filed: 10/27/24 12:28> Medical History HTN (hypertension) GERD (gastroesophageal reflux disease) Acquired polycythemia vera Social History household members: none Smoking Status: Never smoker alcohol intake: never Smoking Status: Never smoker Exam <Mark Kern PA-C - Last Filed: 10/27/24 12:28> Narrative Exam Narrative: Const General:?cooperative, healthy appearing and comfortable [facility] Head:?normal to inspection Ears:?hearing grossly normal bilaterally Nose:?external nose normal Face and sinus:?normal facial exam and sinuses nontender Mouth:?oral mucosae normal Throat:?posterior oropharynx normal Eyes General:?appearance normal, both eyes and all related structures Neck Neck:?normal visual inspection and no lymphadenopathy noted Resp Effort & Inspection:?normal respiratory effort Auscultation:?clear to auscultation bilaterally Cardio Rate:?regular rate Rhythm:?regular rhythm Integumentary There is a 1.5 cm laceration on the dorsal aspect of the right hand. There are 2 skin tears on the right forearm. Wounds are slightly oozing, however bleeding is controlled with pressure. Patient is able to move all extremities normally. Strength and sensation is intact. Patient is neurovascularly intact. Neuro General:?patient alert, patient awake and patient oriented x3 Initial Vital Signs Initial Vital Signs: Vital Signs Temperature 98.5 F 10/26/24 17:45 Pulse Rate 107 H 10/26/24 17:45 Respiratory Rate 18 10/26/24 17:45 Blood Pressure 207/88 H 10/26/24 17:45 Pulse Oximetry 97 10/26/24 17:45 Oxygen Delivery Method Room Air 10/26/24 17:45 <Reba Collins DO - Last Filed: 10/27/24 19:08> Initial Vital Signs Initial Vital Signs: Vital Signs Temperature 98.5 F 10/26/24 17:45 Pulse Rate 107 H 10/26/24 17:45 Respiratory Rate 18 10/26/24 17:45 Blood Pressure 207/88 H 10/26/24 17:45 Pulse Oximetry 97 10/26/24 17:45 Oxygen Delivery Method Room Air 10/26/24 17:45 Procedures <Mark Kern PA-C - Last Filed: 10/27/24 12:28> Laceration Repair Laceration 1: Site: hand Side (If applicable): right Size (cm): 1.5 Description: linear Depth: simple, single layer Local Anesthetic: lidocaine 1% Amount of anesthesia used (mL): 1 Pre-repair: wound explored, irrigated extensively and deep structures intact Skin layer closed with: nylon Skin layer suture size: 5-0 Number of sutures: 3 Technique: simple, interrupted Course <RAISA Walden Last Filed: 10/27/24 12:28> Orders Ordered: Discontinued Medications Amoxicillin/Clavulanate Potassium (Amoxicillin/Clav 875/125 Mg) 1 tab PO NOW ONE Stop: 10/26/24 19:38 Last Admin: 10/26/24 19:54 Dose: 1 tab Documented By: SPF Diphtheria/Tetanus/Acell Pertussis (Tet,Diph,Pertuss(Acell),Vac/Pf 0.5 Ml Syringe) 0.5 ml IM .ONCE ONE Stop: 10/26/24 18:04 Last Admin: 10/26/24 18:53 Dose: 0.5 ml Documented By: SPF <DO Brett Jon Last Filed: 10/27/24 19:08> Orders Ordered: Discontinued Medications Amoxicillin/Clavulanate Potassium (Amoxicillin/Clav 875/125 Mg) 1 tab PO NOW ONE Stop: 10/26/24 19:38 Last Admin: 10/26/24 19:54 Dose: 1 tab Documented By: SPF Diphtheria/Tetanus/Acell Pertussis (Tet,Diph,Pertuss(Acell),Vac/Pf 0.5 Ml Syring e) 0.5 ml IM .ONCE ONE Stop: 10/26/24 18:04 Last Admin: 10/26/24 18:53 Dose: 0.5 ml Documented By: SPF MDM - Animal Bite <Mark Kern PA-C - Last Filed: 10/27/24 12:28> [facility] Narrative Medical decision making narrative: 84-year-old female presents with her daughter status post a dog bite sustained just prior to arrival. X-ray was obtained to rule out foreign body/fracture. X-rays were negative. Wounds were irrigated well. The wound on the hand was repaired with 3 sutures. The sutures will need to be removed in 7-10 days. Suture removal, wound care, signs of infection discussed with patient and patient's daughter. The forearm skin tears were repaired with Steri-Strips. Tdap was updated today. Patient given 1st dose of antibiotics in the ED today. Prescription called in to the pharmacy. ED return precautions discussed with patient. Patient verbalized understanding. Medical records reviewed: Yes Discharge Plan Departure Patient Disposition: Home Clinical Impression: Dog bite Prescriptions: No Action [CRANBERRY] 1 cap PO QDAY Qty: 0 hydroxyurea 500 mg capsule 1,000 mg PO DAILY Rx Instructions: pt takes 1,000 mg everyday once a day except which she takes 1,500 mg lisinopril 20 mg tablet 20 mg PO BID lorazepam 0.5 mg tablet 0.25 mg PO BEDTIME simvastatin 20 mg tablet 20 mg PO ONCE PM aspirin 81 mg Tablet 81 mg PO DAILY cephalexin 250 mg Capsule 500 mg PO QID Qty: 7 0RF Stand Alone Forms: Patient Portal/API/Survey ED Sign-out <Reba Collins DO - Last Filed: 10/27/24 19:08> Cosign ED Attending Cosignature Attestation: I was immediately available in the department for consultation.
== END 2024-10-26 20:04 | disposition home or self-care (01) ==
PROVIDERS: Emergency Provider Student in an Organized Health Care Education/Training Program; PCP Internal Medicine
DX: S61.451A Open bite of right hand, initial encounter (principal); S51.851A Open bite of right forearm, initial encounter; W54.0XXA Bitten by dog, initial encounter; Z23 Encounter for immunization
CPT/HCPCS: 12001; 73090; 73120; 90471; 99283; 90715